=== PATIENT | male | born 1935 | race Caucasian/White ===

== ENCOUNTER 2021-05-31 06:30 | Inpatient (IN) ==
[2021-05-31] MEDS ORDERED: 0.9 % SODIUM CHLORIDE 500 ML IV ONE (06:43)
[2021-05-31] MEDS ORDERED: DIPH,PERTUSS(ACELL),TET VAC/PF 0.5 ML SYRINGE IM ONE (06:43)
[2021-05-31] MEDS ORDERED: morphine 4 MG/ML VIAL IV ONE ×2 (06:43→07:37)
--- NOTE | 2021-05-31 06:47 | Emergency Department Note ---
HPI General Chief complaint: Trauma Stated complaint: Hip pain Time Seen by Provider: 05/31/21 06:43 Source: EMS Mode of arrival: EMS Limitations: no limitations History of Present Illness HPI Narrative: Narrative: 86-year-old male history of hypertension hyperlipidemia, type 2 diabetes, CKD, prostate cancer presents to the ED for fall, head injury. He says he got up around 1 AM in fact to go to the bathroom but believes he simply passed out while standing in the bathroom. Does not really recall but denies any presyncopal symptoms of any kind no chest pain or shortness of breath no palpitations no focal neurologic complaints. Says he did strike his forehead when he fell. Takes baby aspirin. No anticoagulation. Patient was able to get back up into bed but thinks he may have broken his hip so called EMS later this morning and brought him here. Complains of severe right hip pain but denies any other traumatic injury other than hitting his forehead. Has no neck pain thoracic or abdominal pain no pain or weakness in his bilateral upper extremities or left lower extremity. No other complaints, patient is very hard of hearing. Says he was not on the ground for very long Related Data Home Medications Medication Instructions Recorded Confirmed cholecalciferol (vitamin D3) 50 2,000 unit PO QDAY cap 09/12/14 05/26/21 mcg (2,000 unit) capsule insulin lispro 100 unit/mL 6 unit SUB-Q .QAC ml 10/19/19 05/26/21 subcutaneous solution (Humalog U-100 Insulin) aspirin 81 mg chewable tablet 81 mg PO QDAY tab 01/15/21 05/26/21 Previous Rx's Medication Instructions Recorded Diabetic Shoes #1 each 05/31/16 triamcinolone acetonide 0.1 % 1 applic TOPICAL BID #80 g 11/23/16 topical ointment blood-glucose meter (Contour Next #1 each 03/29/17 Meter) blood sugar diagnostic (Contour #300 each 03/27/19 Next Test Strips) amlodipine 5 mg tablet (Norvasc) 5 mg PO QDAY #90 tab 12/16/20 tamsulosin 0.4 mg capsule (Flomax) 0.4 mg PO QDAY #90 cap 12/16/20 hydrochlorothiazide 25 mg tablet 25 mg PO QDAY #90 tab 01/01/21 losartan 100 mg tablet (Cozaar) 100 mg PO QDAY #90 tab 01/08/21 omeprazole 20 mg capsule,delayed 20 mg PO QDAY #90 cap 02/24/21 release levothyroxine 125 mcg tablet 125 mcg PO QDAY #90 tab 05/22/21 (Synthroid) simvastatin 10 mg tablet (Zocor) 10 mg PO QDAY #90 tab 05/22/21 Allergies Allergy/AdvReac Type Severity Reaction Status Date / Time Sulfa (Sulfonamide Allergy Unknown Hives Verified 05/31/21 06:38 Antibiotics) Bee stings Allergy Unknown Anaphylaxis Uncoded 05/26/21 09:01 Review of Systems ROS ROS Narrative: Full review of systems unable to obtain as patient is extremely hard of hearing although he is not altered [facility] Narrative Patient History Narrative: Narrative: Medical/Surgical/Family History All Active Problems (Updated 05/31/21 @ 06:51 by Josias Tubbs DO) Syncope (Acute) Acute hip pain (Acute) Head injury (Acute) Right otitis externa (Acute) Right acute otitis media (Acute) Bilateral knee pain (Acute) Right knee DJD (Acute) Dysphagia (Acute) Prostate cancer (Acute) Annual physical exam (Acute) Medicare annual wellness visit, initial (Acute) IBS (irritable bowel syndrome) (Chronic) Petechial rash (Acute) History of inguinal hernia repair (Acute) Vitamin D deficiency (Acute) Ptosis of eyelid (Acute) Pseudophakia (Acute) Malignant neoplasm prostate (Acute) Open-angle glaucoma (Acute) 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 of 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 (Acute) Hypothyroidism (acquired) (Acute) Hypertension, essential (Acute) Hyperlipidemia (Acute) Hypercholesterolemia (Acute) Glaucoma (Acute) Epiphora (Acute) 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) Chronic kidney disease, stage III (moderate) (Acute) Medical History Annual physical exam Bilateral knee pain Chronic kidney disease, stage III (moderate) Drusen of optic disc Dysphagia Epiphora Glaucoma Hypercholesterolemia Hyperlipidemia Hypertension, essential 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 Head: Normocephalic, slight contusion to forehead and slight abrasion to nasal bridge Eyes: No Icterus, PERRLA EOMI, slight contusion around left eye ENT: Moist mucus membranes, midface stable Neck: Supple, no midline tenderness Cardiac: Normal heart sounds, palpable radial pulses, no peripheral edema Pulmonary: Normal respiratory effort. Breath sounds clear, no wheeze, rhonchi, rales, Gastrointestinal: Abdomen soft, non-distended, non-tender, pelvis stable Musculoskeletal: No gross deformities, well perfused. Right lower extremity shortened externally rotated but distally neurovascularly intact, does have hip pain with logroll. Bilateral upper extremities unremarkable atraumatic nontender full range of motion, left lower extremity unremarkable full range of motion Skin: warm, dry Neuro: Alert and oriented. But extremely hard of hearing General Limitations: no limitations Course Vital Signs Vital signs: Vital Signs Temperature 37.6 C H 05/31/21 06:31 Pulse Rate 84 05/31/21 06:31 Respiratory Rate 16 05/31/21 06:31 Blood Pressure 182/61 05/31/21 06:31 Pulse Oximetry (%) 93 05/31/21 06:31 Temperature 37.6 C H 05/31/21 06:31 Pulse Rate 84 05/31/21 06:31 Respiratory Rate 16 05/31/21 06:31 Blood Pressure 182/61 05/31/21 06:31 Pulse Oximetry (%) 93 05/31/21 06:31 MDM MDM Narrative Medical decision making narrative: Narrative: 86-year-old male patient presents status post fall most suspicious for right hip fracture. Story is a bit unclear, patient thinks he may have actually syncopized although no preceding symptoms. Work-up is initiated Diagnostic tests are all pending will be signed out to Dr. 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: No Clinical Impression: Syncope, Acute hip pain, Head injury Patient Disposition: Still a Patient Condition: Fair Follow up with: Benjamin Srinivasan MD [Primary Care Provider] - Prescriptions: No Action (DME) blood-glucose meter [Contour Next Meter] misc See Dose Instructions .ROUTE .MEDSUPPLY Qty: 1 0RF Dose Instruction: As directed Rx Instructions: As directed (DME) Contour Next Test Strips Strip See Dose Instructions .ROUTE .MEDSUPPLY Qty: 300 3RF Dose Instruction: As directed Rx Instructions: As directed to test three times daily tamsulosin [Flomax] 0.4 mg capsule 0.4 mg PO QDAY Qty: 90 1RF amlodipine [Norvasc] 5 mg tablet 5 mg PO QDAY Qty: 90 1RF Rx Instructions: hydrochlorothiazide 25 mg tablet 25 mg PO QDAY Qty: 90 1RF losartan [Cozaar] 100 mg tablet 100 mg PO QDAY Qty: 90 1RF Rx Instructions: start with 1/2 tab daily x 5 days then increase to 1 tab daily thereafter omeprazole 20 mg capsule,delayed release(DR/EC) 20 mg PO QDAY Qty: 90 1RF simvastatin [Zocor] 10 mg tablet 10 mg PO QDAY Qty: 90 1RF levothyroxine [Synthroid] 125 mcg tablet 125 mcg PO QDAY Qty: 90 1RF cholecalciferol (vitamin D3) 2,000 unit capsule 2,000 unit PO QDAY 0RF aspirin 81 mg tablet,chewable 81 mg PO QDAY 0RF (DME) Diabetic Shoes Qty: 1 0RF Rx Instructions: Pt due for new T2DM shoes as he has not had a new pair in 2 years. triamcinolone acetonide 0.1 % ointment 1 applic TOPICAL BID Qty: 80 0RF insulin lispro [Humalog KwikPen Insulin] 100 unit/mL insulin pen 0RF insulin lispro [Humalog U-100 Insulin] 100 unit/mL solution 6 unit SUB-Q .QAC 0RF
[2021-05-31] MEDS ORDERED: ONDANSETRON 4 MG/2 ML VIAL IV ONE (07:38)
[2021-05-31 07:41] LABS: Basophils # (Auto) 0.02 K/mcL (0.00-0.30); Basophils % (Auto) 0.3 % (0.0-2.0); Eosinophils # (Auto) 0 K/mcL (0.00-0.70); Eosinophils % (Auto) 0 % (0.0-7.0); Hematocrit 33.7 % (40.1-51.0); Hemoglobin 12.1 g/dL (13.7-17.5); Lymphocytes # (Auto) 0.35 K/mcL (1.50-4.80); Lymphocytes % (Auto) 5.5 % (15.5-49.0); Mean Cell Volume 101.8 fL (80.0-100.0); Mean Corpuscular HGB Conc 35.9 g/dL (31.0-36.0); Mean Platelet Volume 10.2 fL (7.4-10.4); Monocytes # (Auto) 0.62 K/mcL (0.10-0.90); Monocytes % (Auto) 9.8 % (1.0-12.0); Neutrophils % (Auto) 84.4 % (38.0-78.0); Platelet Count 191 K/mcL (140-440); RBC 3.31 M/mcL (4.63-6.08); Red Cell Distribution Width 13.2 % (11.5-14.5); WBC 6.3 K/mcL (4.5-11.0)
--- NOTE | 2021-05-31 08:00 | Emergency Department Note ---
ED Note Addendum Note Addendum: Right hip x-ray reveals fracture right femoral neck. CT scan of the head shows age-appropriate changes but no acute disease. C-spine shows degenerative changes but no acute change. Chest x-ray read by radiologist as no acute disease. White count normal at 6.3. hemoglobin low at 12.1 with elevated MCV compatible with macrocytic anemia. platelet count 191. at 7:48 developed temp of 102.5. Yesterday was his last day of antibiotics for a right otitis media/right sided facial infection. EKG; reviewed and interpreted by Dr. Mireles. Normal sinus rhythm. Rate of 75 which is normal. Left axis deviation. Right bundle branch block. No acute ST elevation or ST depression. No hyperacute T waves. No ischemic changes. Impression abnormal EKG. Potassium level was 2.9. Supplemental potassium was ordered. Sodium was low at 128 and the patient was receiving normal saline IV. Spoke to Dr. Espinoza the orthopedist at 8:20 AM. He requested that the patient be seen by the hospitalist and when cleared for surgery by hospitalist he be notified. Requested Hospitalist at 0830. IV Tylenol 650 mg was given. Concern was that the patient was n.p.o. for surgery so was administered IV. Urinalysis was negative for leukocytes. 0935: Discussed with Dr. Rucker the hospitalist. He excepted the patient and we will have the patient sent to the [facility] floor where he will see the patient for further evaluation.
--- NOTE | 2021-05-31 08:01 | XRay Report ---
HISTORY: Fell with right hip injury FINDINGS: There is an acute transverse fracture through the right femoral neck. There is varus angulation. The hip joint is normal in width and alignment, without evidence of underlying arthritis. The bones are normally mineralized. There are numerous radiation implant seeds in the prostate. No lytic or blastic metastasis are present. IMPRESSION: Fractured right femoral neck Dr. Quigley was called with the report Interpreted and Authenticated by: Adolph Andrews 05/31/21
--- NOTE | 2021-05-31 08:01 | XRay Report ---
HISTORY: Syncope, fell, injuries FINDINGS: The lungs are clear and well expanded. There is no pulmonary contusion, pneumothorax or pleural effusion. The heart size and mediastinum are normal. There is a cylindrical shaped radiopaque foreign body overlying the left chest wall. No rib fracture is seen. IMPRESSION: Normal chest Interpreted and Authenticated by: Adolph Andrews 05/31/21
--- NOTE | 2021-05-31 08:02 | Cat Scan Report ---
History: Syncope, fell, neck injury TECHNIQUE: The neck was imaged without contrast in an axial plane at 2.5 mm intervals. Sagittal and coronal reformats were created. The radiation exposure was limited using dose reduction technology. FINDINGS: The cervico-occipital junction is normal. There is mild osteoarthritis at the articulation of the odontoid and anterior ring of C1. There is no fracture or evidence of acute neck injury. The C2-3 disc is moderately narrowed. C3-4 disc is partially ankylosed. There is no spur formation or stenosis. At C4-5 there is mild disc space narrowing and 3 mm grade 1 spondylolisthesis due to moderate arthritis in the right facet. There is mild to moderate stenosis right-sided neural foramen. C5-6 disc is severely narrowed and degenerated. There is a medium-size anterior and small posterior osteophyte. There is also mild arthritis in the facets and spurring of the uncinate processes causing moderate stenosis of both neural foramina. The C6-7 disc is moderately narrowed and degenerated. There are moderate size spurs arising from the uncinate processes bilaterally causing severe stenosis of both neural foramina. C7-T1 disc is moderate to severely narrowed and degenerated. There are small spurs arising from the uncinate processes and facets bilaterally causing mild stenosis of the foramina. No paraspinal mass or hematoma are present. There are ossifications in the ligamentum nuchae posterior to the spinous processes of C5 and C6. 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 The greatest neural foraminal stenosis is bilaterally at C6-7 Dr. Quigley was called with the report Interpreted and Authenticated by: Adolph Andrews 05/31/21
--- NOTE | 2021-05-31 08:02 | Cat Scan Report ---
History: Syncope, fell, head injury TECHNIQUE: The brain was imaged without contrast in axial plane at 2.5 mm intervals. Sagittal and coronal reformats were created. The radiation exposure was limited using dose reduction technology. FINDINGS: The patient was unable to remain motionless during the exam. There is some motion artifact. Mild generalized atrophy is present. There are ill-defined zones of decreased attenuation in the white matter in the frontal and parietal lobes. These findings are consistent with age-related ischemia or degeneration. There is no intracranial hemorrhage. No infarct is detected. There is no mass effect. The ventricles are prominent but proportionate to the atrophy. No abnormal extra-axial fluid collection is present. Bone windows show no skull fracture. There is moderate left maxillary sinusitis with an air-fluid level. There is also opacification a few ethmoid air cells bilaterally. No abnormality is seen within the orbits. IMPRESSION: Age-related degenerative changes No evidence of acute head injury Sinusitis Dr. Quigley was called with the report Interpreted and Authenticated by: Adolph Andrews 05/31/21
[2021-05-31 08:03] LABS: Creatine Kinase 497 U/L (24-195)
[2021-05-31 08:17] LABS: Blood Urea Nitrogen 44 mg/dL (8-23); Calcium 9.3 mg/dL (8.6-10.4); Carbon Dioxide 22 mmol/L (22-30); Chloride 89 mmol/L (96-108); Glomerular Filtration Rate 38; Glucose 211 mg/dL (70-105)
[2021-05-31] MEDS ORDERED: POTASSIUM CHLORIDE 40 MEQ in DEXTROSE 5% IN WATER 500 ML IV ONE (08:19)
[2021-05-31 09:15] LABS: Appearance,Urine HAZY (Clear); Bilirubin,Urine Negative (Negative); Color,Urine YELLOW; Culture Indicated,Urine No; Glucose,Urine (UA) Negative (Negative); Ketones,Urine Negative (Negative); Leukocyte Esterase,Urine Negative /uL (Negative); Mucus,Urine FEW /hpf; Nitrate,Urine Negative (Negative); Protein,Urine 30 mg/dL (Negative); Specific Gravity,Urine 1.011 (1.000-1.035); Urine Blood >=1.0 mg/dL (Negative); Urine RBC 1 /hpf (0-3); Urine Squamous Epithelial Cell 1 /hpf (0-4); Urine WBC 1 /hpf (0-4); Urobilinogen,Urine Negative
[2021-05-31] MEDS ORDERED: ACETAMINOPHEN 650 MG/65 ML BAG IV ONE (09:19)
[2021-05-31] MEDS ORDERED: ONDANSETRON 4 MG/2 ML VIAL IV PRN ×2 (10:10→10:52)
[2021-05-31] MEDS ORDERED: 0.9 % SODIUM CHLORIDE 1,000 ML IV SCH (10:15)
--- NOTE | 2021-05-31 10:28 | Internal Med History&Physical ---
HPI History of Present Illness Patient information: Note initiated : 05/31/21 at 10:22 am Service Date, if different from initiated Date: [] Patient: Mandi Bahena a 86 y/o M admitted on for Hip pain. Chief Complaint: [] History of present illness: Mr. Bahena is a 86 year old M Presents to the ED with right hip pain. He got up around 1 in the morning to go to the bathroom and while ambulating bathroom he fell hit his face believe he passed out. Per she says he told her he got dizzy she doesn't know if he passed out or not. Denies any chest pain or shortness of breath. Is on baby aspirin, but no anticoagulation. Patient got back up in the bed and then called EMS in the morning realizing severe pain. CT head in the ED was unremarkable. He did finish antibiotics yesterday for right otitis media. In the ED is found to be hyponatremic 128 with low potassium 2.9.. Of BUN creatinine above baseline. Patient was given IV fluid in the ED. He also had a fever in the ED but chest x-ray and urinalysis is unremarkable. No leukocytosis, will check band count. Mildly elevated CPK likely from tissue damage from the fall. Troponin negative. Review of Systems: Positive as above. Denies headache/fever/chills/nausea/vomiting/chest or abdominal pain/cough/dyspnea/diarrhea. Remaining 10 point review of system reviewed negative PFSH PFSH All Active Problems (Updated 05/31/21 @ 09:19 by Reji Mireles MD) Syncope (Acute) Head injury (Acute) Closed displaced fracture of right femoral neck (Acute) Anemia, macrocytic (Acute) Acute hypokalemia (Acute) Acute hyponatremia (Acute) Febrile (Acute) Diabetes (Acute) Right otitis externa (Acute) Right acute otitis media (Acute) Bilateral knee pain (Acute) Right knee DJD (Acute) Dysphagia (Acute) Prostate cancer (Acute) Annual physical exam (Acute) Medicare annual wellness visit, initial (Acute) IBS (irritable bowel syndrome) (Chronic) Petechial rash (Acute) History of inguinal hernia repair (Acute) Vitamin D deficiency (Acute) Ptosis of eyelid (Acute) Pseudophakia (Acute) Malignant neoplasm prostate (Acute) Open-angle glaucoma (Acute) 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 (Acute) Hypothyroidism (acquired) (Acute) Hypertension, essential (Acute) Hyperlipidemia (Acute) Hypercholesterolemia (Acute) Glaucoma (Acute) Epiphora (Acute) 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) Chronic kidney disease, stage III (moderate) (Acute) Medical History Annual physical exam Bilateral knee pain Chronic kidney disease, stage III (moderate) Drusen of optic disc Dysphagia Epiphora Glaucoma Hypercholesterolemia Hyperlipidemia Hypertension, essential 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 Malignant neoplasm prostate Medicare annual wellness visit, initial Open-angle glaucoma Petechial rash Prostate cancer Pseudophakia Ptosis of eyelid 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 Vitamin D deficiency Surgical History History of colonoscopy (05/08/03) History of inguinal hernia repair Family History Mother Diabetes mellitus NOS Essential hypertension Social History marital status: occupational status: retired physical activity: aerobics frequency: daily alcohol intake frequency: does not drink substance use type: does not use MEDS/ALLERGIES Home Medications and Allergies Home Medications Medication Instructions Recorded Confirmed Type cholecalciferol (vitamin D3) 50 2,000 unit PO QDAY cap 09/12/14 05/31/21 History mcg (2,000 unit) capsule Diabetic Shoes #1 each 05/31/16 05/26/21 Rx triamcinolone acetonide 0.1 % 1 applic TOPICAL BID #80 g 11/23/16 05/26/21 Rx topical ointment blood-glucose meter (Contour Next #1 each 03/29/17 05/26/21 Rx Meter) blood sugar diagnostic (Contour #300 each 03/27/19 05/26/21 Rx Next Test Strips) amlodipine 5 mg tablet (Norvasc) 5 mg PO QDAY #90 tab 12/16/20 05/31/21 Rx tamsulosin 0.4 mg capsule (Flomax) 0.4 mg PO QDAY #90 cap 12/16/20 05/26/21 Rx losartan 100 mg tablet (Cozaar) 100 mg PO QDAY #90 tab 10/14/21 03/01/22 Rx aspirin 81 mg chewable tablet 81 mg PO QDAY tab 01/15/21 05/31/21 History omeprazole 20 mg capsule,delayed 20 mg PO QDAY #90 cap 02/24/21 05/26/21 Rx release levothyroxine 125 mcg tablet 125 mcg PO QDAY #90 tab 05/22/21 05/31/21 Rx (Synthroid) simvastatin 10 mg tablet (Zocor) 10 mg PO QDAY #90 tab 05/22/21 05/26/21 Rx Allergies Allergy/AdvReac Type Severity Reaction Status Date / Time Sulfa (Sulfonamide Allergy Unknown Hives Verified 05/31/21 06:38 Antibiotics) Bee stings Allergy Unknown Anaphylaxis Uncoded 05/26/21 09:01 EXAM Constitutional Vitals: Temp Pulse Resp BP Pulse Ox 100.7 F H 76 16 116/55 93 05/31/21 09:15 05/31/21 08:31 05/31/21 06:31 05/31/21 10:16 05/31/21 08:31 Exam: General: Alert, Awake, No acute Distress Eyes/N/T: EOMI, PERRL, dry MM Head/Neck: neck supple, normocephalic atraumatic CV: RRR, 2/6 SM, normal s1/s2 Pulm: Clear b/l, no wheezing/rhonchi/rales Abd: soft, nontender, +BS x4 Ext: no clubbing/cyanosis/edema Neuro: Alert, no focal deficits, moves all extremities, CN 2-12 grossly intact, sensations intact bilateral upper and lower skin: warm/dry DATA Data Completed and Pending Labs: Labs from last 24 hours 05/31/21 05/31/21 05/31/21 08:30 08:28 08:27 WBC RBC Hgb Hct MCV MCH MCHC RDW Plt Count MPV Neut % (Auto) Lymph % (Auto) [place] % (Auto) Eos % (Auto) Baso % (Auto) Lymph # (Auto) [place] # (Auto) Eos # (Auto) Baso # (Auto) Absolute Neutrophils VBG Lactic Acid 1.1 Sodium Potassium Chloride Carbon Dioxide Anion Gap BUN Creatinine GFR Calculation Glucose Calcium Magnesium Total Creatine Kinase Troponin T < 0.01 Urine Color Yellow Urine Appearance Hazy A Urine pH 5.0 Ur Specific [place] 1.011 Urine Protein 30 A Urine Glucose (UA) Negative Urine Ketones Negative Urine Occult Blood >=1.0 A Urine Nitrate Negative Urine Bilirubin Negative Urine Urobilinogen Negative Ur Leukocyte Esterase Negative Urine RBC 1 Urine WBC 1 Ur Squamous Epith Cells 1 Urine Bacteria None Urine Mucus Few A Ur Culture Indicated? No 05/31/21 05/31/21 05/31/21 07:18 07:18 07:18 WBC 6.3 RBC 3.31 L Hgb 12.1 L Hct 33.7 L MCV 101.8 H MCH 36.6 H MCHC 35.9 RDW 13.2 Plt Count 191 MPV 10.2 Neut % (Auto) 84.4 H Lymph % (Auto) 5.5 L [place] % (Auto) 9.8 Eos % (Auto) 0 Baso % (Auto) 0.3 Lymph # (Auto) 0.35 L [place] # (Auto) 0.62 Eos # (Auto) 0 Baso # (Auto) 0.02 Absolute Neutrophils 5.35 VBG Lactic Acid Sodium 128 L Potassium 2.9 L* Chloride 89 L Carbon Dioxide 22 Anion Gap 17.0 H BUN 44 H Creatinine 1.6 H GFR Calculation 38 Glucose 211 H Calcium 9.3 Magnesium 1.8 Total Creatine Kinase 497 H Troponin T TNP Urine Color Urine Appearance Urine pH Ur Specific [place] Urine Protein Urine Glucose (UA) Urine Ketones Urine Occult Blood Urine Nitrate Urine Bilirubin Urine Urobilinogen Ur Leukocyte Esterase Urine RBC Urine WBC Ur Squamous Epith Cells Urine Bacteria Urine Mucus Ur Culture Indicated? A/P Narrative A/P Narrative: A: *Right hip fracture: *Hyponatremia/hypokalemia: *Volume depletion: *likely orthostatic hypotension/syncope prehospital: *GIOVANNI on CKD IIIb: *Fever: ?reactive from pain/fracture vs other. UA/CXR unremarkable. -Just finished antibiotic course for right otitis media *Macrocytic anemia, chronic: *DM: *HTN/HLD: *Hypothyroidism: *GERD: *Generalized weakness/deconditioning P: -IVF & potassium supp, f/u sodium/potassium -f/u renal fxn -Dr. Espinoza for orthopedic surgery -check b12/folate -cont homee norvasc, d/c home hctz for hyponatremia -Aspirin for surgery -Basal and SSI -PT/OT -CM for placement -ppx: SCD and post-op per ortho / home ppi Time Spent With Patient Time: Total time spent is greater than 50% in coordination of care (as documented) at patient's floor/unit and/or counseling patient:
[2021-05-31] MEDS ORDERED: DEXTROSE 50% 50 ML VIAL IV PRN (10:52)
[2021-05-31] MEDS ORDERED: DEXTROSE 31 GM ORAL.SUSP PO PRN (10:52)
[2021-05-31] MEDS ORDERED: POTASSIUM CHLORIDE 20 MEQ TABLET PO ONE (10:52)
[2021-05-31] MEDS ORDERED: POTASSIUM CHLORIDE 40 MEQ in DEXTROSE 5% IN WATER 500 ML IV PRN (10:52)
[2021-05-31] MEDS ORDERED: HYDROcodone/APAP 5/325MG TABLET PO PRN (10:52)
[2021-05-31] MEDS ORDERED: POTASSIUM CHLORIDE 20 MEQ TABLET PO PRN ×2 (10:52)
[2021-05-31] MEDS ORDERED: POLYETHYLENE GLYCOL 3350 17 GM PACKET PO PRN (10:52)
[2021-05-31] MEDS ORDERED: LABETALOL 5 MG/ML ML IV PRN (10:52)
[2021-05-31] MEDS ORDERED: ACETAMINOPHEN 325 MG TABLET PO PRN (10:52)
[2021-05-31] MEDS ORDERED: MAGNESIUM SULFATE 2 GM/50 ML BAG IV PRN (10:52)
[2021-05-31] MEDS ORDERED: IPRATROPIUM/ALBUTEROL 3 ML AMPUL.NEB NEB PRN (10:52)
[2021-05-31] MEDS ORDERED: SENNOSIDES 1 TABLET PO PRN (10:52)
[2021-05-31] MEDS: INSULIN LISPRO 1 UNIT/0.01 ML UNIT SQ SCH ×3 (11:58→21:18)
[2021-05-31 12:33] LABS: Band Neutrophils % 2 % (0-10); Lymphocytes % 7 % (15-49); Macrocytosis 1+ (None Seen); Monocytes % (Manual) 8 % (1-12); Platelet Estimate NORMAL (Normal); RBC Morphology ABNORMAL (Normal); Segmented Neutrophils % 83 % (38-78)
[2021-05-31] MEDS: 0.9 % SODIUM CHLORIDE 1,000 ML IV SCH (13:23)
[2021-05-31] MEDS: 0.9 % SODIUM CHLORIDE 10 ML SYRINGE IV SCH ×2 (14:31→21:15)
[2021-05-31] MEDS: morphine 2 MG/ML VIAL IV PRN ×2 (15:48→18:25)
--- NOTE | 2021-05-31 16:58 | History and Physical Report ---
DATE OF ADMISSION: 05/31/2021 HISTORY OF PRESENT ILLNESS: The patient is an 86-year-old male, who was getting up in the middle of the night to use bathroom and fell. He said he fell and hit his face on a granite counter. He states that he was able to get back up and fell several times thereafter. He did go back to bed and waited to tell them morning time to call EMS realizing he had significant pain in the right hip. He was bought to the ED now for evaluation. Hip x-rays did reveal a femoral neck fracture of the right hip. CT scan was unremarkable. The patient recently finished antibiotics for right otitis media and was found to be hyponatremic and hypokalemic in the ED. Hospitalist was then consulted for to be admitted into the hospital for medical review, and orthopedics were consulted for hip fracture. 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 PAST SURGICAL HISTORY: Includes colonoscopy in 2003 as well as repair of an inguinal hernia. FAMILY HISTORY: Positive for mother who had diabetes and hypertension. SOCIAL HISTORY: The patient is . He is retired. He does day-to-day activity including walking. He denies alcohol use or tobacco use. MEDICATIONS: Include vitamin D3, triamcinolone topical ointment, blood glucose meter, amlodipine 5 mg tablet, tamsulosin 0.4 mg capsule, losartan 100 mg tablet, aspirin 81 mg, omeprazole 20 mg, levothyroxine 125 mcg, and simvastatin. ALLERGIES: HE DOES REPORT AN ALLERGY TO SULFA DRUGS AND BEE STINGS. PHYSICAL EXAMINATION: GENERAL: On exam, the patient was alert and oriented times 3. He had appropriate mood and affect. HEART: Regular. LUNGS: Clear to auscultation. EXTREMITIES: His right lower extremity was shortened and externally rotated. He did have palpable tibial pulse bilaterally. He was able to wiggle his toes on the right lower extremity. He had good capillary refill. Sensation was grossly intact. The left lower extremity, the patient was able to plantar flex and dorsiflex the ankle. He was also able to gently flex and extend the knee, however, this was painful for him given his underlying osteoarthritis of the knee. HEENT: He denies any other injuries other than small cut on his nose from his fall. PERTINENT LABORATORY WORK: Noted at the time of admission, red blood cells are low at 3.31, hemoglobin is 12.1, hematocrit was 33.7. Sodium is 128, potassium 2.9. X-ray of the right hip do show a displaced femoral neck fracture. IMPRESSION: Right femoral neck fracture in an 86-year-old male. PLAN: The patient has elected to proceed with a right hip hemiarthroplasty to be performed by Dr. Espinoza after medical clearance by hospitalist. This will likely go on 06/01/2021 in the afternoon. I did have a long discussion with the patient regarding the procedure and the postoperative protocol. I advised the patient of risk of surgery including bleeding; infection; injury to nerves, blood vessels, and other structures in that area; and anesthetic risk which may include heart attack, stroke, or even . The patient was agreeable to this and is willing to proceed. JOANNA:candelaria Job ID: [id number] Doc ID: [id number] Gonzalo Nova PA-C
--- NOTE | 2021-05-31 17:24 | EKG ---
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 It is regular and rate is controlled. Probable sinus or ectopic atrial mechanism Right bundle branch block Electronically Signed On 05-31-2021 17:24:10 PST by Antonino Martini /store/[email or web address]/[id number]
[2021-05-31] MEDS: DOCUSATE SODIUM 100 MG CAPSULE PO SCH (21:15)
[2021-06-01] MEDS: 0.9 % SODIUM CHLORIDE 1,000 ML IV SCH ×2 (02:17→21:02)
[2021-06-01] MEDS: 0.9 % SODIUM CHLORIDE 10 ML SYRINGE IV SCH ×3 (05:04→21:03)
[2021-06-01 07:09] LABS: ALT/SGPT 10 U/L (<40); AST/SGOT 40 U/L (<40); Albumin 3.4 gm/dL (3.2-5.2); Albumin/Globulin Ratio 1.2 (1.0-2.3); Alkaline Phosphatase 49 U/L (39-117); Bilirubin,Direct < 0.2 mg/dL (0-0.3); Bilirubin,Total 0.6 mg/dL (0.1-1.0); Blood Urea Nitrogen 29 mg/dL (8-23); Calcium 8.4 mg/dL (8.6-10.4); Carbon Dioxide 23 mmol/L (22-30); Chloride 98 mmol/L (96-108); Globulin 2.8 gm/dL (2.2-3.7); Glomerular Filtration Rate 49; Glucose 139 mg/dL (70-105); Lactate Dehydrogenase 187 U/L (135-225); Phosphorous 1.7 mg/dL (2.5-4.5); Triglycerides 72 mg/dL (<150); Uric Acid 6.3 mg/dL (2.5-8.0)
[2021-06-01] MEDS ORDERED: DEXTROSE 50% 50 ML SYRINGE IV PRN (07:30)
[2021-06-01] MEDS: INSULIN LISPRO 1 UNIT/0.01 ML UNIT SQ SCH ×4 (08:12→22:14)
[2021-06-01] MEDS: VITAMIN D3 25 MCG TABLET PO SCH (08:12)
[2021-06-01] MEDS: DOCUSATE SODIUM 100 MG CAPSULE PO SCH ×2 (08:12→21:18)
[2021-06-01] MEDS: LEVOTHYROXINE 125 MCG TABLET PO SCH (08:12)
[2021-06-01] MEDS: morphine 2 MG/ML VIAL IV PRN ×3 (08:20→13:21)
[2021-06-01] MEDS ORDERED: BENZOCAINE 1 SPRAY BOTTLE TOPICAL ONE (09:54)
[2021-06-01] MEDS ORDERED: oxyCODONE HCL 5 MG TABLET PO PRN (13:46)
[2021-06-01] MEDS ORDERED: LABETALOL 5 MG/ML ML IV PRN ×2 (13:48→18:24)
[2021-06-01] MEDS: ACETAMINOPHEN 1,000 MG/100 ML BAG IV SCH ×2 (14:00→21:02)
[2021-06-01] MEDS ORDERED: KETAMINE 50 MG/ML Syringe (ANEST) IV ONE (17:00)
[2021-06-01] MEDS ORDERED: ONDANSETRON 4 MG/2 ML VIAL ONE (17:00)
[2021-06-01] MEDS ORDERED: GLYCOPYRROLATE 0.2 MG/ML VIAL IV ONE (17:00)
[2021-06-01] MEDS ORDERED: TRANEXAMIC ACID 1,000 MG/10 ML VIAL ONE ×2 (17:00→19:35)
[2021-06-01] MEDS ORDERED: LIDOCAINE HCL/PF 100 MG/5 ML SYRINGE IV ONE (17:00)
[2021-06-01] MEDS ORDERED: MAGNESIUM SULFATE 2 GM/50 ML BAG IV ONE (17:00)
[2021-06-01] MEDS ORDERED: PHENYLephrine 1 MG/10 ML SYRINGE (ANEST) ONE (17:00)
[2021-06-01] MEDS ORDERED: ROPIVACAINE HCL/PF 20 ML VIAL IJ ONE (17:00)
[2021-06-01] MEDS ORDERED: ceFAZolin 2 GM in DEXTROSE 5% IN WATER 50 ML IV SCH ×2 (17:00→18:15)
[2021-06-01] MEDS ORDERED: DEXAMETHASONE 10 MG/ML VIAL ONE (17:00)
[2021-06-01] MEDS ORDERED: fentaNYL 100 MCG/2 ML VIAL IV ONE (17:00)
[2021-06-01] MEDS ORDERED: PROPOFOL 200 MG/20 ML VIAL IV ONE (17:00)
[2021-06-01] MEDS ORDERED: SUGAMMADEX SODIUM 200 MG/2 ML VIAL IV ONE (17:00)
[2021-06-01] MEDS ORDERED: BENZOCAINE/MENTHOL 1 LOZENGE PO PRN ×2 (18:05→18:24)
[2021-06-01] MEDS ORDERED: MAGNESIUM HYDROXIDE 30 ML ORAL.SUSP PO PRN (18:05)
--- NOTE | 2021-06-01 18:05 | Brief Operative Note ---
Brief Operative Note Date of procedure: 06/01/21 Pre-op diagnosis: Right femoral neck fracture Post-op diagnosis: same Procedure: Open treatment right femoral neck fracture with prosthetic hemiarthroplasty Grafts/Implants: Yes (Depuy Actis 4 std stem, +0 neck, 52 unipolar head) Anesthesia: GETA Findings: femoral neck fracture Complications: none Surgeon: Tae Espinoza Television Station Manager: Gonzalo Nova Estimated blood loss (cc): 100 Specimens Removed/Pathology: none sent Condition: stable Disposition: PACU
[2021-06-01] MEDS ORDERED: morphine 4 MG/ML VIAL IV PRN (18:11)
[2021-06-01] MEDS ORDERED: LACTATED RINGERS 250 ML IV PRN (18:24)
[2021-06-01] MEDS ORDERED: IPRATROPIUM/ALBUTEROL 3 ML AMPUL.NEB NEB PRN (18:24)
[2021-06-01] MEDS ORDERED: NALOXONE HCL 0.4 MG/ML VIAL IV PRN (18:24)
[2021-06-01] MEDS ORDERED: ACETAMINOPHEN 1,000 MG/100 ML BAG IV ONE (18:24)
[2021-06-01] MEDS ORDERED: METOPROLOL TARTRATE 5 MG/5 ML VIAL IV PRN (18:24)
[2021-06-01] MEDS ORDERED: METHOCARBAMOL 1,000 MG/10 ML VIAL IV PRN (18:24)
[2021-06-01] MEDS ORDERED: ONDANSETRON 4 MG/2 ML VIAL IV PRN (18:24)
[2021-06-01] MEDS ORDERED: fentaNYL 100 MCG/2 ML VIAL IV PRN (18:24)
[2021-06-01] MEDS ORDERED: LACTATED RINGERS 1,000 ML IV SCH (18:30)
--- NOTE | 2021-06-01 19:25 | Internal Med Progress Note ---
SUBJECTIVE Subjective Patient information: Note initiated : 06/01/21 at 7:24 pm Service Date, if different from initiated Date: [] Patient: Mandi Bahena 86 y/o M admitted on 05/31/21 for Hip pain. Chief Complaint: [] Interval history: Mr. Bahena is a 86 year old M Presents to the ED with right hip pain. He got up around 1 in the morning to go to the bathroom and while ambulating bathroom he fell hit his face believe he passed out. Per she says he told her he got dizzy she doesn't know if he passed out or not. Denies any chest pain or shortness of breath. Is on baby aspirin, but no anticoagulation. Patient got back up in the bed and then called EMS in the morning realizing severe pain. CT head in the ED was unremarkable. He did finish antibiotics yesterday for right otitis media. In the ED is found to be hyponatremic 128 with low potassium 2.9.. Of BUN creatinine above baseline. Patient was given IV fluid in the ED. He also had a fever in the ED but chest x-ray and urinalysis is unremarkable. No leukocytosis, will check band count. Mildly elevated CPK likely from tissue damage from the fall. Troponin negative. 06/01 Sodium improved to 130, hypokalemia resolved, renal function improved, surgery planned for today. Physical exam Head: Atraumatic, normal inspection. Eyes: normal appearance, no scleral icterus. Neck: full ROM Respiratory: no respiratory distress. Cardiovascular: normal rate and rhythm, S1, S2. GI/Abdominal: soft, nontender, no guarding. Extremities: Right hip tenderness Neurological: CN II-XII intact, intact motor, intact sensation. Psychiatric: normal mood. Skin: warm, normal color Constitutional Vitals: Vital Signs Temp Pulse Resp BP Pulse Ox 97.2 F 68 18 157/104 93 06/01/21 19:11 06/01/21 19:12 06/01/21 19:12 06/01/21 19:12 06/01/21 19:12 Period Temp Pulse Resp BP Sys/Davalos Pulse Ox Last 24 Hr 97.2 F-101.4 F 49-76 10-20 80-157/42-117 88-100 Intake and Output 06/01/21 06/01/21 06/01/21 05:59 13:59 21:59 Intake Total 1050 1850 Output Total 950 1425 Balance 100 425 Intake & Output: Intake & Output 06/01/21 06/01/21 06/01/21 05:59 13:59 21:59 Intake Total 1050 1850 Output Total 950 1425 Balance 100 425 Intake: IV 1000 50 Sodium Chloride 0.9% 1,000 ml @ 1000 84 mls/hr IV .[id number] [facility] Rx#: [id number] Ancef 2 gm In Dextrose 5% in 50 Water 50 ml @ 100 mls/hr IV PREOP [facility] Rx#:[id number] Oral 50 IV - Manual Only 1800 Output: Urine Catheter Amount 950 1425 Other: Urine Appearance Clear Urine Color Straw Urine Odor Normal OBJ DATA Labs CBC & Chem 7: 05/31/21 07:18 06/01/21 05:13 Labs: Abnormal Lab Results 06/01/21 06/01/21 06/01/21 05:13 05:13 05:13 RBC Hgb Hct MCV MCH Neut % (Auto) Lymph % (Auto) Lymph # (Auto) Seg Neutrophils % Lymphocytes % RBC Morphology Macrocytosis Sodium 130 L Potassium Chloride Anion Gap BUN 29 H Creatinine 1.3 H Glucose 139 H Calcium 8.4 L Phosphorus 1.7 L AST 40 H Total Creatine Kinase 787 H Folate > 20.0 H Urine Appearance Urine Protein Urine Occult Blood Urine Mucus 05/31/21 05/31/21 05/31/21 08:30 07:18 07:18 RBC Hgb Hct MCV MCH Neut % (Auto) Lymph % (Auto) Lymph # (Auto) Seg Neutrophils % 83 H Lymphocytes % 7 L RBC Morphology Abnormal A Macrocytosis 1+ A Sodium 128 L Potassium 2.9 L* Chloride 89 L Anion Gap 17.0 H BUN 44 H Creatinine 1.6 H Glucose 211 H Calcium Phosphorus AST Total Creatine Kinase 497 H Folate Urine Appearance Hazy A Urine Protein 30 A Urine Occult Blood >=1.0 A Urine Mucus Few A 05/31/21 07:18 RBC 3.31 L Hgb 12.1 L Hct 33.7 L MCV 101.8 H MCH 36.6 H Neut % (Auto) 84.4 H Lymph % (Auto) 5.5 L Lymph # (Auto) 0.35 L Seg Neutrophils % Lymphocytes % RBC Morphology Macrocytosis Sodium Potassium Chloride Anion Gap BUN Creatinine Glucose Calcium Phosphorus AST Total Creatine Kinase Folate Urine Appearance Urine Protein Urine Occult Blood Urine Mucus Meds: Medications Hydrocodone Bitart/Acetaminophen (Hydrocodone/Apap 5/325mg Tablet) 0 tab PO Q4HP PRN; Protocol PRN Reason: Per Pain Protocol Albuterol/Ipratropium (Ipratropium/Albuterol 3 Ml Ampul.Neb) 3 ml NEB Q4HP PRN PRN Reason: Shortness Of Breath Albuterol/Ipratropium (Ipratropium/Albuterol 3 Ml Ampul.Neb) 3 ml NEB ONCE PRN PRN Reason: Wheezing Stop: 06/01/21 20:24 Dextrose (Dextrose 50% 50 Ml Syringe) 0 ml IV UD PRN PRN Reason: Hypoglycemia Diagnostic Test (Pha) (Accu-Chek 1 Each Strip) 1 each FS ACHS [facility] Last Admin: 06/01/21 12:45 Dose: 1 each Documented by: Docusate Sodium (Docusate Sodium 100 Mg Capsule) 100 mg PO BID [facility] Last Admin: 06/01/21 08:12 Dose: Not Given Documented by: Fentanyl (Fentanyl 100 Mcg/2 Ml Vial) 25 mcg IV Q2M PRN PRN Reason: Pain Stop: 06/01/21 20:24 Glucose (Dextrose 31 Gm Oral.Susp) 15 gm PO PRN PRN PRN Reason: Hypoglycemia Heparin Sodium (Porcine) (Heparin 5,000 Unit/Ml Vial) 5,000 unit SQ Q12 [facility] Potassium Chloride 40 meq/ (Dextrose) 520 mls @ 130 mls/hr IV UD PRN PRN Reason: Potassium < 3 Magnesium Sulfate (Magnesium Sulfate) 2 gm in 50 mls @ 50 mls/hr IV UD PRN PRN Reason: Magnesium </= 1.6 Acetaminophen (Ofirmev) 1,000 mg in 100 mls @ 200 mls/hr IV Q8H [facility]; Protocol Last Admin: 06/01/21 14:00 Dose: 200 mls/hr Documented by: Cefazolin Sodium 2 gm/ (Dextrose) 50 mls @ 100 mls/hr IV PREOP [facility]; Protocol Stop: 06/01/21 21:00 Last Infusion: 06/01/21 17:45 Dose: Infused Documented by: Sodium Chloride (Sodium Chloride 0.9%) 1,000 mls @ 100 mls/hr IV .Q10H [facility] Cefazolin Sodium 2 gm/ (Dextrose) 50 mls @ 100 mls/hr IV Q8H [facility]; Protocol Stop: 06/02/21 02:16 Lactated Ringer's (Lactated Ringers) 1,000 mls @ 0 mls/hr IV PRN PRN PRN Reason: Hypovolemia Stop: 06/01/21 20:24 Lactated Ringer's (Lactated Ringers) 1,000 mls @ 20 mls/hr IV .Q24H [facility] Stop: 06/01/21 20:24 Acetaminophen (Ofirmev) 1,000 mg in 100 mls @ 200 mls/hr IV ONCE ONE Stop: 06/01/21 18:53 Insulin Human Lispro (Insulin Lispro 1 Unit/0.01 Ml Unit) 0 unit SQ [facility]; Protocol Last Admin: 06/01/21 12:45 Dose: Not Given Documented by: Labetalol HCl (Labetalol 5 Mg/Ml Ml) 0 mg IV Q2HP PRN PRN Reason: Hypertension Labetalol HCl (Labetalol 5 Mg/Ml Ml) 5 mg IV Q5MIN PRN PRN Reason: SBP > 160 Stop: 06/01/21 20:24 Levothyroxine Sodium (Levothyroxine 125 Mcg Tablet) 125 mcg PO [facility] Last Admin: 06/01/21 08:12 Dose: Not Given Documented by: Magnesium Hydroxide (Magnesium Hydroxide 30 Ml Oral.Susp) 30 ml PO BIDP PRN PRN Reason: Constipation Methocarbamol (Methocarbamol 1,000 Mg/10 Ml Vial) 750 mg IV ONCE PRN PRN Reason: Muscle Spasm Stop: 06/01/21 20:24 Metoprolol Tartrate (Metoprolol Tartrate 5 Mg/5 Ml Vial) 2.5 mg IV Q5MIN PRN PRN Reason: Tachyarrhythmias Stop: 06/01/21 20:24 Morphine Sulfate (Morphine 2 Mg/Ml Vial) 2 mg IV Q1HP PRN; Protocol PRN Reason: Per Pain Protocol Last Admin: 06/01/21 13:21 Dose: 2 mg Documented by: Morphine Sulfate (Morphine 4 Mg/Ml Vial) 0 mg IV Q1HP PRN; Protocol PRN Reason: Per Pain Protocol Naloxone HCl (Naloxone Hcl 0.4 Mg/Ml Vial) 0.1 mg IV Q2MIN PRN PRN Reason: Opiate Reversal Stop: 06/01/21 20:24 Ondansetron HCl (Ondansetron 4 Mg/2 Ml Vial) 4 mg IV Q4HP PRN PRN Reason: Nausea And Vomiting Ondansetron HCl (Ondansetron 4 Mg/2 Ml Vial) 4 mg IV ONCE PRN PRN Reason: Nausea And Vomiting Stop: 06/01/21 20:24 Oxycodone HCl (Oxycodone Hcl 5 Mg Tablet) 5 mg PO Q6HP PRN; Protocol PRN Reason: Per Pain Protocol Polyethylene Glycol (Polyethylene Glycol 3350 17 Gm Packet) 17 gm PO DAILYP PRN PRN Reason: Constipation Potassium Chloride (Potassium Chloride 20 Meq Tablet) 40 meq PO UD PRN PRN Reason: Potssium is 3-3.5 Potassium Chloride (Potassium Chloride 20 Meq Tablet) 40 meq PO UD PRN PRN Reason: Potassium < 3 Senna (Sennosides 1 Tablet) 2 tab PO DAILYP PRN PRN Reason: Constipation Simvastatin (Simvastatin 10 Mg Tablet) 10 mg PO HS [facility] Sodium Chloride (0.9 % Sodium Chloride 10 Ml Syringe) 10 ml IV Q8 [facility] Last Admin: 06/01/21 14:04 Dose: 10 ml Documented by: Tamsulosin HCl (Tamsulosin 0.4 Mg Capsule) 0.4 mg PO HS [facility] Throat Lozenges (Benzocaine/Menthol 1 Lozenge) 1 lozenge PO PRN PRN PRN Reason: Sore Throat Throat Lozenges (Benzocaine/Menthol 1 Lozenge) 1 lozenge PO PRN PRN PRN Reason: Sore Throat Stop: 06/01/21 20:24 Vitamin D (Vitamin D3 25 Mcg Tablet) 50 mcg PO DAILY [facility] Last Admin: 06/01/21 08:12 Dose: Not Given Documented by: A/P Narrative A/P Narrative: A: *Right hip fracture: *Hyponatremia *Volume depletion: *likely orthostatic hypotension/syncope prehospital: *GIOVANNI on CKD IIIb: *Fever: ?reactive from pain/fracture vs other. UA/CXR unremarkable. -Just finished antibiotic course for right otitis media *Macrocytic anemia, chronic: *DM: *HTN/HLD: *Hypothyroidism: *GERD: *Generalized weakness/deconditioning P: -IVF, replace electrolytes as needed.. -Analgesics. -Dr. Espinoza for orthopedic surgery -cont home norvasc, d/c home hctz for hyponatremia -Aspirin for surgery -Basal and SSI -Delirium bundle. -PT/OT -CM for placement -ppx: SCD and post-op per ortho / home ppi Time Spent With Patient Time: Total time spent is greater than 50% in coordination of care (as documented) at patient's floor/unit and/or counseling patient: QUALITY VTE Deep Vein Thrombosis/Pulmonary Embolism Present on Admission: No
[2021-06-01] MEDS ORDERED: TRANEXAMIC ACID 1,000 MG/10 ML VIAL IV ONE (19:29)
[2021-06-01] MEDS: TAMSULOSIN 0.4 MG CAPSULE PO SCH (21:18)
[2021-06-01] MEDS: SIMVASTATIN 10 MG TABLET PO SCH (21:18)
[2021-06-02] MEDS: ceFAZolin 1 GM VIAL IV SCH ×2 (00:02→07:56)
--- NOTE | 2021-06-02 01:10 | XRay Report ---
CLINICAL INFORMATION: Right subcapital hip fracture. FINDINGS: The right hip prostheses is anatomically aligned. The left hip is normal. There are no osseous abnormalities. Soft tissue swelling over the surgical site-as expected. Radiation seeds in the expected location of the prostate as previously seen IMPRESSION: Right hip prostheses in anatomic alignment. Interpreted and Authenticated by: Eduar Tenorio 06/02/21
[2021-06-02] MEDS: morphine 2 MG/ML VIAL IV PRN (04:22)
[2021-06-02] MEDS: 0.9 % SODIUM CHLORIDE 10 ML SYRINGE IV SCH ×3 (04:23→20:56)
[2021-06-02] MEDS: ACETAMINOPHEN 1,000 MG/100 ML BAG IV SCH ×3 (05:17→20:54)
[2021-06-02] MEDS: 0.9 % SODIUM CHLORIDE 1,000 ML IV SCH ×4 (06:50→19:18)
--- NOTE | 2021-06-02 07:37 | Orthopedic Progress Note ---
SUBJECTIVE Subjective Patient information: Note initiated : 06/02/21 at 7:34 am Service Date, if different from initiated Date: [] Patient: Mandi Bahena 86 y/o M admitted on 05/31/21 for Hip pain. Chief Complaint: [] Interval history: POD 1 s/p right hip hemiarthroplasty. Patient doing well participating in PT and pain is well controlled. He denies any numbness or tingling, CP, FERNANDEZ, or any other acute symptoms. Constitutional Vitals: Vital Signs Temp Pulse Resp BP Pulse Ox 97.9 F 65 16 156/75 95 06/02/21 04:20 06/02/21 04:20 06/02/21 04:20 06/02/21 04:20 06/02/21 04:20 Period Temp Pulse Resp BP Sys/Davalos Pulse Ox Last 24 Hr 97.2 F-101.4 F 49-76 01-16 80-167/42-117 88-100 Intake and Output 06/01/21 06/02/21 06/02/21 21:59 05:59 13:59 Intake Total 3050 0 100 Output Total 1425 550 Balance 1625 -550 100 Intake & Output: Intake & Output 06/01/21 06/02/21 06/02/21 21:59 05:59 13:59 Intake Total 3050 0 100 Output Total 1425 550 Balance 1625 -550 100 Intake: IV 1250 100 Sodium Chloride 0.9% 1,000 ml @ 1000 84 mls/hr IV .[id number] [facility] Rx#: [id number] Ancef 2 gm In Dextrose 5% in 50 Water 50 ml @ 100 mls/hr IV PREOP [facility] Rx#:[id number] Oral 0 IV - Manual Only 1800 Output: Urine Catheter Amount 1425 550 Other: Urine Appearance Clear Clear Urine Color Pale Bright Yellow Urine Odor Normal Additional findings Additional findings: Exam of the RLE reveals dressings dry and in place, NVI in the entire RLE, able to ambulate with assistance of a walker. OBJ DATA Labs CBC & Chem 7: 05/31/21 07:18 06/01/21 05:13 Labs: Abnormal Lab Results 06/01/21 06/01/21 06/01/21 05:13 05:13 05:13 RBC Hgb Hct MCV MCH Neut % (Auto) Lymph % (Auto) Lymph # (Auto) Seg Neutrophils % Lymphocytes % RBC Morphology Macrocytosis Sodium 130 L Potassium Chloride Anion Gap BUN 29 H Creatinine 1.3 H Glucose 139 H Calcium 8.4 L Phosphorus 1.7 L AST 40 H Total Creatine Kinase 787 H Folate > 20.0 H Urine Appearance Urine Protein Urine Occult Blood Urine Mucus 05/31/21 05/31/21 05/31/21 08:30 07:18 07:18 RBC Hgb Hct MCV MCH Neut % (Auto) Lymph % (Auto) Lymph # (Auto) Seg Neutrophils % 83 H Lymphocytes % 7 L RBC Morphology Abnormal A Macrocytosis 1+ A Sodium 128 L Potassium 2.9 L* Chloride 89 L Anion Gap 17.0 H BUN 44 H Creatinine 1.6 H Glucose 211 H Calcium Phosphorus AST Total Creatine Kinase 497 H Folate Urine Appearance Hazy A Urine Protein 30 A Urine Occult Blood >=1.0 A Urine Mucus Few A 05/31/21 07:18 RBC 3.31 L Hgb 12.1 L Hct 33.7 L MCV 101.8 H MCH 36.6 H Neut % (Auto) 84.4 H Lymph % (Auto) 5.5 L Lymph # (Auto) 0.35 L Seg Neutrophils % Lymphocytes % RBC Morphology Macrocytosis Sodium Potassium Chloride Anion Gap BUN Creatinine Glucose Calcium Phosphorus AST Total Creatine Kinase Folate Urine Appearance Urine Protein Urine Occult Blood Urine Mucus Meds: Medications Hydrocodone Bitart/Acetaminophen (Hydrocodone/Apap 5/325mg Tablet) 0 tab PO Q4HP PRN; Protocol PRN Reason: Per Pain Protocol Albuterol/Ipratropium (Ipratropium/Albuterol 3 Ml Ampul.Neb) 3 ml NEB Q4HP PRN PRN Reason: Shortness Of Breath Cefazolin Sodium (Cefazolin 1 Gm Vial) 2 gm IV Q8H [facility] Stop: 06/02/21 09:00 Last Admin: 06/02/21 00:02 Dose: 2 gm Documented by: Dextrose (Dextrose 50% 50 Ml Syringe) 0 ml IV UD PRN PRN Reason: Hypoglycemia Diagnostic Test (Pha) (Accu-Chek 1 Each Strip) 1 each FS ACHS [facility] Last Admin: 06/01/21 22:14 Dose: 1 each Documented by: Docusate Sodium (Docusate Sodium 100 Mg Capsule) 100 mg PO BID [facility] Last Admin: 06/01/21 21:18 Dose: Not Given Documented by: Glucose (Dextrose 31 Gm Oral.Susp) 15 gm PO PRN PRN PRN Reason: Hypoglycemia Heparin Sodium (Porcine) (Heparin 5,000 Unit/Ml Vial) 5,000 unit SQ Q12 [facility] Potassium Chloride 40 meq/ (Dextrose) 520 mls @ 130 mls/hr IV UD PRN PRN Reason: Potassium < 3 Magnesium Sulfate (Magnesium Sulfate) 2 gm in 50 mls @ 50 mls/hr IV UD PRN PRN Reason: Magnesium </= 1.6 Acetaminophen (Ofirmev) 1,000 mg in 100 mls @ 200 mls/hr IV Q8H [facility]; Protocol Last Infusion: 06/02/21 06:05 Dose: Infused Documented by: Sodium Chloride (Sodium Chloride 0.9%) 1,000 mls @ 100 mls/hr IV .Q10H [facility] Last Admin: 06/02/21 06:50 Dose: Not Given Documented by: Insulin Human Lispro (Insulin Lispro 1 Unit/0.01 Ml Unit) 0 unit SQ ACHS [facility]; Protocol Last Admin: 06/01/21 22:14 Dose: 6 unit Documented by: Labetalol HCl (Labetalol 5 Mg/Ml Ml) 0 mg IV Q2HP PRN PRN Reason: Hypertension Levothyroxine Sodium (Levothyroxine 125 Mcg Tablet) 125 mcg PO QAMAC [facility] Last Admin: 06/01/21 08:12 Dose: Not Given Documented by: Magnesium Hydroxide (Magnesium Hydroxide 30 Ml Oral.Susp) 30 ml PO BIDP PRN PRN Reason: Constipation Morphine Sulfate (Morphine 4 Mg/Ml Vial) 0 mg IV Q1HP PRN; Protocol PRN Reason: Per Pain Protocol Ondansetron HCl (Ondansetron 4 Mg/2 Ml Vial) 4 mg IV Q4HP PRN PRN Reason: Nausea And Vomiting Oxycodone HCl (Oxycodone Hcl 5 Mg Tablet) 5 mg PO Q6HP PRN; Protocol PRN Reason: Per Pain Protocol Polyethylene Glycol (Polyethylene Glycol 3350 17 Gm Packet) 17 gm PO DAILYP PRN PRN Reason: Constipation Potassium Chloride (Potassium Chloride 20 Meq Tablet) 40 meq PO UD PRN PRN Reason: Potssium is 3-3.5 Potassium Chloride (Potassium Chloride 20 Meq Tablet) 40 meq PO UD PRN PRN Reason: Potassium < 3 Senna (Sennosides 1 Tablet) 2 tab PO DAILYP PRN PRN Reason: Constipation Simvastatin (Simvastatin 10 Mg Tablet) 10 mg PO [facility] Last Admin: 06/01/21 21:18 Dose: Not Given Documented by: Sodium Chloride (0.9 % Sodium Chloride 10 Ml Syringe) 10 ml IV Q8 [facility] Last Admin: 06/02/21 04:23 Dose: 10 ml Documented by: Tamsulosin HCl (Tamsulosin 0.4 Mg Capsule) 0.4 mg PO [facility] Last Admin: 06/01/21 21:18 Dose: Not Given Documented by: Throat Lozenges (Benzocaine/Menthol 1 Lozenge) 1 lozenge PO PRN PRN PRN Reason: Sore Throat Vitamin D (Vitamin D3 25 Mcg Tablet) 50 mcg PO DAILY [facility] Last Admin: 06/01/21 08:12 Dose: Not Given Documented by: A/P Narrative A/P Narrative: POD 1 s/p right hip hemiarthroplasty weightbearing as tolerated, work with PT Medicine per hospitalist Plan for discharge in next 1-2 days to either home or SNF based on patients PT results and home help. Time Spent With Patient Time: Total time spent is greater than 50% in coordination of care (as documented) at patient's floor/unit and/or counseling patient:
[2021-06-02] MEDS: LEVOTHYROXINE 125 MCG TABLET PO SCH ×2 (07:58→12:23)
[2021-06-02] MEDS: INSULIN LISPRO 1 UNIT/0.01 ML UNIT SQ SCH ×4 (07:58→20:56)
[2021-06-02 08:57] LABS: Basophils # (Auto) 0.01 K/mcL (0.00-0.30); Basophils % (Auto) 0.1 % (0.0-2.0); Eosinophils # (Auto) 0 K/mcL (0.00-0.70); Eosinophils % (Auto) 0 % (0.0-7.0); Hematocrit 31.8 % (40.1-51.0); Hemoglobin 10.9 g/dL (13.7-17.5); Lymphocytes # (Auto) 0.42 K/mcL (1.50-4.80); Lymphocytes % (Auto) 3.4 % (15.5-49.0); Mean Cell Volume 102.3 fL (80.0-100.0); Mean Corpuscular HGB Conc 34.3 g/dL (31.0-36.0); Mean Platelet Volume 9.8 fL (7.4-10.4); Monocytes # (Auto) 0.72 K/mcL (0.10-0.90); Monocytes % (Auto) 5.9 % (1.0-12.0); Neutrophils % (Auto) 90.6 % (38.0-78.0); Platelet Count 213 K/mcL (140-440); RBC 3.11 M/mcL (4.63-6.08); Red Cell Distribution Width 13.5 % (11.5-14.5); WBC 12.3 K/mcL (4.5-11.0)
[2021-06-02 09:31] LABS: ALT/SGPT 10 U/L (<40); AST/SGOT 36 U/L (<40); Albumin 3.4 gm/dL (3.2-5.2); Albumin/Globulin Ratio 1.1 (1.0-2.3); Alkaline Phosphatase 53 U/L (39-117); Bilirubin,Direct < 0.2 mg/dL (0-0.3); Bilirubin,Total 0.4 mg/dL (0.1-1.0); Blood Urea Nitrogen 30 mg/dL (8-23); Calcium 7.9 mg/dL (8.6-10.4); Carbon Dioxide 21 mmol/L (22-30); Chloride 96 mmol/L (96-108); Globulin 3.1 gm/dL (2.2-3.7); Glomerular Filtration Rate 49; Glucose 194 mg/dL (70-105); Lactate Dehydrogenase 201 U/L (135-225); Triglycerides 80 mg/dL (<150); Uric Acid 5.6 mg/dL (2.5-8.0)
[2021-06-02] MEDS: DOCUSATE SODIUM 100 MG CAPSULE PO SCH ×2 (10:11→20:56)
[2021-06-02] MEDS: VITAMIN D3 25 MCG TABLET PO SCH ×2 (10:11→12:22)
[2021-06-02] MEDS: HEPARIN 5,000 UNIT/ML VIAL SQ SCH ×3 (10:11→20:55)
[2021-06-02] MEDS: HYDROcodone/APAP 5/325MG TABLET PO PRN (14:25)
--- NOTE | 2021-06-02 16:32 | Internal Med Progress Note ---
SUBJECTIVE Subjective Patient information: Note initiated : 06/02/21 at 4:30 pm Service Date, if different from initiated Date: [] Patient: Mandi Bahena a 86 y/o M admitted on 05/31/21 for Hip pain. Chief Complaint: [] Interval history: Mr. Bahena is a 86 year old M Presents to the ED with right hip pain. He got up around 1 in the morning to go to the bathroom and while ambulating bathroom he fell hit his face believe he passed out. Per she says he told her he got dizzy she doesn't know if he passed out or not. Denies any chest pain or shortness of breath. Is on baby aspirin, but no anticoagulation. Patient got back up in the bed and then called EMS in the morning realizing severe pain. CT head in the ED was unremarkable. He did finish antibiotics yesterday for right otitis media. In the ED is found to be hyponatremic 128 with low potassium 2.9.. Of BUN creatinine above baseline. Patient was given IV fluid in the ED. He also had a fever in the ED but chest x-ray and urinalysis is unremarkable. No leukocytosis, will check band count. Mildly elevated CPK likely from tissue damage from the fall. Troponin negative. 06/01 Sodium improved to 130, hypokalemia resolved, renal function improved, surgery planned for today. Likely aspirated after surgery when family gave the patient some food, speech consulted. 06/02 More alert today, had ORIF yesterday. On dysphagia diet per speech recommendation. Remove montero catheter, discontinue IV fluid. Working with PT. Physical exam Head: Atraumatic, normal inspection. Eyes: normal appearance, no scleral icterus. Neck: full ROM Respiratory: no respiratory distress. Cardiovascular: normal rate and rhythm, S1, S2. GI/Abdominal: soft, nontender, no guarding. Extremities: Right hip tenderness Neurological: CN II-XII intact, intact motor, intact sensation. Psychiatric: normal mood. Skin: warm, normal color Constitutional Vitals: Vital Signs Temp Pulse Resp BP Pulse Ox 97.9 F 70 20 136/62 94 06/02/21 12:00 06/02/21 12:00 06/02/21 12:00 06/02/21 12:00 06/02/21 12:00 Period Temp Pulse Resp BP Sys/Davalos Pulse Ox Last 24 Hr 97.2 F-98.2 F 49-71 - 80-167/42-117 88-100 Intake and Output 06/02/21 06/02/21 06/02/21 05:59 13:59 21:59 Intake Total 0 1100 Output Total 550 Balance -550 1100 Weight 58.967 kg Patient Weight 06/03/21 05:59 Weight 58.967 kg Intake & Output: Intake & Output 06/02/21 06/02/21 06/02/21 05:59 13:59 21:59 Intake Total 0 1100 Output Total 550 Balance -550 1100 Weight 58.967 kg Intake: IV 1100 Sodium Chloride 0.9% 1,000 ml @ 1000 100 mls/hr IV .Q10H [facility] Rx#: [id number] Oral 0 Output: Urine Catheter Amount 550 Other: Urine Appearance Clear Uretheral (Montero) Clear Urine Color Bright Yellow Uretheral (Montero) Bright Yellow OBJ DATA Labs CBC & Chem 7: 06/02/21 08:27 06/02/21 08:27 Labs: Abnormal Lab Results 06/02/21 06/02/21 06/01/21 08:27 08:27 05:13 WBC 12.3 H RBC 3.11 L Hgb 10.9 L Hct 31.8 L MCV 102.3 H MCH 35.0 H Neut % (Auto) 90.6 H Lymph % (Auto) 3.4 L Lymph # (Auto) 0.42 L Seg Neutrophils % Lymphocytes % Absolute Neutrophils 11.10 H RBC Morphology Macrocytosis Sodium 130 L Potassium Chloride Carbon Dioxide 21 L Anion Gap BUN 30 H 29 H Creatinine 1.3 H 1.3 H Glucose 194 H 139 H Calcium 7.9 L 8.4 L Phosphorus 1.7 L AST 40 H Total Creatine Kinase Folate Urine Appearance Urine Protein Urine Occult Blood Urine Mucus 06/01/21 06/01/21 05/31/21 05:13 05:13 08:30 WBC RBC Hgb Hct MCV MCH Neut % (Auto) Lymph % (Auto) Lymph # (Auto) Seg Neutrophils % Lymphocytes % Absolute Neutrophils RBC Morphology Macrocytosis Sodium Potassium Chloride Carbon Dioxide Anion Gap BUN Creatinine Glucose Calcium Phosphorus AST Total Creatine Kinase 787 H Folate > 20.0 H Urine Appearance Hazy A Urine Protein 30 A Urine Occult Blood >=1.0 A Urine Mucus Few A 05/31/21 05/31/21 05/31/21 07:18 07:18 07:18 WBC RBC 3.31 L Hgb 12.1 L Hct 33.7 L MCV 101.8 H MCH 36.6 H Neut % (Auto) 84.4 H Lymph % (Auto) 5.5 L Lymph # (Auto) 0.35 L Seg Neutrophils % 83 H Lymphocytes % 7 L Absolute Neutrophils RBC Morphology Abnormal A Macrocytosis 1+ A Sodium 128 L Potassium 2.9 L* Chloride 89 L Carbon Dioxide Anion Gap 17.0 H BUN 44 H Creatinine 1.6 H Glucose 211 H Calcium Phosphorus AST Total Creatine Kinase 497 H Folate Urine Appearance Urine Protein Urine Occult Blood Urine Mucus Meds: Medications Hydrocodone Bitart/Acetaminophen (Hydrocodone/Apap 5/325mg Tablet) 0 tab PO Q4HP PRN; Protocol PRN Reason: Per Pain Protocol Last Admin: 06/02/21 14:25 Dose: 2 tab Documented by: Albuterol/Ipratropium (Ipratropium/Albuterol 3 Ml Ampul.Neb) 3 ml NEB Q4HP PRN PRN Reason: Shortness Of Breath Dextrose (Dextrose 50% 50 Ml Syringe) 0 ml IV UD PRN PRN Reason: Hypoglycemia Diagnostic Test (Pha) (Accu-Chek 1 Each Strip) 1 each FS ACHS [facility] Last Admin: 06/02/21 11:54 Dose: 1 each Documented by: Docusate Sodium (Docusate Sodium 100 Mg Capsule) 100 mg PO BID [facility] Last Admin: 06/02/21 10:11 Dose: Not Given Documented by: Glucose (Dextrose 31 Gm Oral.Susp) 15 gm PO PRN PRN PRN Reason: Hypoglycemia Heparin Sodium (Porcine) (Heparin 5,000 Unit/Ml Vial) 5,000 unit SQ Q12 [facility] Last Admin: 06/02/21 12:21 Dose: 5,000 unit Documented by: Potassium Chloride 40 meq/ (Dextrose) 520 mls @ 130 mls/hr IV UD PRN PRN Reason: Potassium < 3 Magnesium Sulfate (Magnesium Sulfate) 2 gm in 50 mls @ 50 mls/hr IV UD PRN PRN Reason: Magnesium </= 1.6 Acetaminophen (Ofirmev) 1,000 mg in 100 mls @ 200 mls/hr IV Q8H [facility]; Protocol Last Admin: 06/02/21 15:50 Dose: 200 mls/hr Documented by: Sodium Chloride (Sodium Chloride 0.9%) 1,000 mls @ 100 mls/hr IV .Q10H [facility] Last Admin: 06/02/21 07:57 Dose: 100 mls/hr Documented by: Insulin Human Lispro (Insulin Lispro 1 Unit/0.01 Ml Unit) 0 unit SQ [facility]; Protocol Last Admin: 06/02/21 11:54 Dose: 6 unit Documented by: Labetalol HCl (Labetalol 5 Mg/Ml Ml) 0 mg IV Q2HP PRN PRN Reason: Hypertension Levothyroxine Sodium (Levothyroxine 125 Mcg Tablet) 125 mcg PO QAMAC [facility] Last Admin: 06/02/21 12:23 Dose: 125 mcg Documented by: Magnesium Hydroxide (Magnesium Hydroxide 30 Ml Oral.Susp) 30 ml PO BIDP PRN PRN Reason: Constipation Morphine Sulfate (Morphine 4 Mg/Ml Vial) 0 mg IV Q1HP PRN; Protocol PRN Reason: Per Pain Protocol Last Admin: 06/02/21 10:04 Dose: 2 mg Documented by: Ondansetron HCl (Ondansetron 4 Mg/2 Ml Vial) 4 mg IV Q4HP PRN PRN Reason: Nausea And Vomiting Oxycodone HCl (Oxycodone Hcl 5 Mg Tablet) 5 mg PO Q6HP PRN; Protocol PRN Reason: Per Pain Protocol Last Admin: 06/02/21 15:51 Dose: 5 mg Documented by: Polyethylene Glycol (Polyethylene Glycol 3350 17 Gm Packet) 17 gm PO DAILYP PRN PRN Reason: Constipation Potassium Chloride (Potassium Chloride 20 Meq Tablet) 40 meq PO UD PRN PRN Reason: Potssium is 3-3.5 Potassium Chloride (Potassium Chloride 20 Meq Tablet) 40 meq PO UD PRN PRN Reason: Potassium < 3 Senna (Sennosides 1 Tablet) 2 tab PO DAILYP PRN PRN Reason: Constipation Simvastatin (Simvastatin 10 Mg Tablet) 10 mg PO [facility] Last Admin: 06/01/21 21:18 Dose: Not Given Documented by: Sodium Chloride (0.9 % Sodium Chloride 10 Ml Syringe) 10 ml IV Q8 [facility] Last Admin: 06/02/21 14:24 Dose: Not Given Documented by: Tamsulosin HCl (Tamsulosin 0.4 Mg Capsule) 0.4 mg PO [facility] Last Admin: 06/01/21 21:18 Dose: Not Given Documented by: Throat Lozenges (Benzocaine/Menthol 1 Lozenge) 1 lozenge PO PRN PRN PRN Reason: Sore Throat Vitamin D (Vitamin D3 25 Mcg Tablet) 50 mcg PO DAILY [facility] Last Admin: 06/02/21 12:22 Dose: 50 mcg Documented by: A/P Narrative A/P Narrative: A: *Right hip fracture s/p ORIF *Hyponatremia *Volume depletion: *likely orthostatic hypotension/syncope prehospital: *GIOVANNI on CKD IIIb: *Fever: ?reactive from pain/fracture vs other. UA/CXR unremarkable. -Just finished antibiotic course for right otitis media *Macrocytic anemia, chronic: *DM: *HTN/HLD: *Hypothyroidism: *GERD: *Generalized weakness/deconditioning *Dysphagia P: -Analgesics. -Dr. Espinoza for orthopedic surgery -cont home norvasc, d/c home hctz for hyponatremia -Aspirin for surgery -Basal and SSI -Delirium bundle. -Dysphagia diet per speech -PT/OT/Speech -CM for placement -ppx: SCD and post-op per ortho / home ppi Time Spent With Patient Time: Total time spent is greater than 50% in coordination of care (as documented) at patient's floor/unit and/or counseling patient: QUALITY VTE Deep Vein Thrombosis/Pulmonary Embolism Present on Admission: No
[2021-06-02] MEDS: SIMVASTATIN 10 MG TABLET PO SCH (20:56)
[2021-06-02] MEDS: TAMSULOSIN 0.4 MG CAPSULE PO SCH (20:56)
[2021-06-03] MEDS: 0.9 % SODIUM CHLORIDE 1,000 ML IV SCH (05:01)
[2021-06-03] MEDS: 0.9 % SODIUM CHLORIDE 10 ML SYRINGE IV SCH ×3 (05:13→21:22)
[2021-06-03] MEDS: ACETAMINOPHEN 1,000 MG/100 ML BAG IV SCH ×3 (05:13→21:21)
--- NOTE | 2021-06-03 07:34 | General Surgery Progress Note ---
Surgery - Auxiliary Note Subjective Patient Information: Note initiated : 06/03/21 at 7:32 am Service Date, if different from initiated Date: [] Patient: Mandi Bahena 86 y/o M admitted on 05/31/21 for Hip pain. Chief Complaint: Mild to moderate pain. Anxious to discharge and start the rehab process. bandages c/d/i nvi-distal A/P: 2 days s/p R mihaela hip arthroplasty-stable Mobilize with PT discharge to SNF today. f/u at [facility] 2 weeks for staple removal. WBAT. leave silver dressing intact til f/u.
[2021-06-03] MEDS: INSULIN LISPRO 1 UNIT/0.01 ML UNIT SQ SCH ×4 (07:37→21:22)
[2021-06-03] MEDS: LEVOTHYROXINE 125 MCG TABLET PO SCH (07:38)
[2021-06-03 08:24] LABS: Basophils # (Auto) 0.01 K/mcL (0.00-0.30); Basophils % (Auto) 0.1 % (0.0-2.0); Eosinophils # (Auto) 0.01 K/mcL (0.00-0.70); Eosinophils % (Auto) 0.1 % (0.0-7.0); Hematocrit 28.7 % (40.1-51.0); Lymphocytes # (Auto) 0.68 K/mcL (1.50-4.80); Mean Cell Volume 102.1 fL (80.0-100.0); Mean Corpuscular HGB Conc 34.8 g/dL (31.0-36.0); Mean Platelet Volume 10.1 fL (7.4-10.4); Monocytes # (Auto) 0.73 K/mcL (0.10-0.90); Monocytes % (Auto) 7.5 % (1.0-12.0); Neutrophils % (Auto) 85.3 % (38.0-78.0); Platelet Count 236 K/mcL (140-440); RBC 2.81 M/mcL (4.63-6.08); Red Cell Distribution Width 13.5 % (11.5-14.5); WBC 9.8 K/mcL (4.5-11.0)
[2021-06-03] MEDS: VITAMIN D3 25 MCG TABLET PO SCH (10:05)
[2021-06-03] MEDS: DOCUSATE SODIUM 100 MG CAPSULE PO SCH ×2 (10:06→21:22)
[2021-06-03] MEDS: HEPARIN 5,000 UNIT/ML VIAL SQ SCH ×2 (10:06→21:22)
[2021-06-03] MEDS: HYDROcodone/APAP 5/325MG TABLET PO PRN (11:47)
--- NOTE | 2021-06-03 14:09 | Internal Med Progress Note ---
SUBJECTIVE Subjective Patient information: Note initiated : 06/03/21 at 2:07 pm Service Date, if different from initiated Date: [] Patient: Mandi Bahena 86 y/o M admitted on 05/31/21 for Hip pain. Chief Complaint: [] Interval history: Mr. Bahena is a 86 year old M Presents to the ED with right hip pain. He got up around 1 in the morning to go to the bathroom and while ambulating bathroom he fell hit his face believe he passed out. Per she says he told her he got dizzy she doesn't know if he passed out or not. Denies any chest pain or shortness of breath. Is on baby aspirin, but no anticoagulation. Patient got back up in the bed and then called EMS in the morning realizing severe pain. CT head in the ED was unremarkable. He did finish antibiotics yesterday for right otitis media. In the ED is found to be hyponatremic 128 with low potassium 2.9.. Of BUN creatinine above baseline. Patient was given IV fluid in the ED. He also had a fever in the ED but chest x-ray and urinalysis is unremarkable. No leukocytosis, will check band count. Mildly elevated CPK likely from tissue damage from the fall. Troponin negative. 06/01 Sodium improved to 130, hypokalemia resolved, renal function improved, surgery planned for today. Likely aspirated after surgery when family gave the patient some food, speech consulted. 06/02 More alert today, had ORIF yesterday. On dysphagia diet per speech recommendation. Remove montero catheter, discontinue IV fluid. Working with PT. 06/03 Urinary retention after montero was removed, will replace montero catheter. Also had some hematuria. Awaiting placement. Physical exam Head: Atraumatic, normal inspection. Eyes: normal appearance, no scleral icterus. Neck: full ROM Respiratory: no respiratory distress. Cardiovascular: normal rate and rhythm, S1, S2. GI/Abdominal: soft, nontender, no guarding. Extremities: Right hip tenderness Neurological: CN II-XII intact, intact motor, intact sensation. Psychiatric: normal mood. Skin: warm, normal color Constitutional Vitals: Vital Signs Temp Pulse Resp BP Pulse Ox 98.3 F 88 18 148/73 94 06/03/21 12:00 06/03/21 12:00 06/03/21 12:00 06/03/21 12:00 06/03/21 12:00 Period Temp Pulse Resp BP Sys/Davalos Pulse Ox Last 24 Hr 97.3 F-98.5 F 62-88 18-20 129-149/59-73 91-95 Intake and Output 06/03/21 06/03/21 06/03/21 05:59 13:59 21:59 Intake Total 620 200 Output Total 425 50 Balance 195 150 Intake & Output: Intake & Output 06/03/21 06/03/21 06/03/21 05:59 13:59 21:59 Intake Total 620 200 Output Total 425 50 Balance 195 150 Intake: IV 200 Oral 420 200 Output: Urine Catheter Amount 425 Uretheral (Montero) 50 Void Amount 50 Other: Meal Lunch Percent of Meal Consumed Refused Feeding Ability Independent Urine Appearance Clear Uretheral (Montero) Clear Urine Color Bright Yellow Dark Red Uretheral (Montero) Straw Urine Odor Normal Uretheral (Montero) Normal Stool Size Moderate Stool Color Brown Stool Consistency Soft # Bowel Movements 1 OBJ DATA Labs CBC & Chem 7: 06/03/21 07:54 06/02/21 08:27 Labs: Abnormal Lab Results 06/03/21 06/02/21 06/02/21 07:54 08:27 08:27 WBC 12.3 H RBC 2.81 L 3.11 L Hgb 10.0 L 10.9 L Hct 28.7 L 31.8 L MCV 102.1 H 102.3 H MCH 35.6 H 35.0 H Neut % (Auto) 85.3 H 90.6 H Lymph % (Auto) 7.0 L 3.4 L Lymph # (Auto) 0.68 L 0.42 L Absolute Neutrophils 8.32 H 11.10 H Sodium Carbon Dioxide 21 L BUN 30 H Creatinine 1.3 H Glucose 194 H Calcium 7.9 L Phosphorus AST Total Creatine Kinase Folate 06/01/21 06/01/21 06/01/21 05:13 05:13 05:13 WBC RBC Hgb Hct MCV MCH Neut % (Auto) Lymph % (Auto) Lymph # (Auto) Absolute Neutrophils Sodium 130 L Carbon Dioxide BUN 29 H Creatinine 1.3 H Glucose 139 H Calcium 8.4 L Phosphorus 1.7 L AST 40 H Total Creatine Kinase 787 H Folate > 20.0 H Meds: Medications Hydrocodone Bitart/Acetaminophen (Hydrocodone/Apap 5/325mg Tablet) 0 tab PO Q4HP PRN; Protocol PRN Reason: Per Pain Protocol Last Admin: 06/03/21 11:47 Dose: 2 tab Documented by: Albuterol/Ipratropium (Ipratropium/Albuterol 3 Ml Ampul.Neb) 3 ml NEB Q4HP PRN PRN Reason: Shortness Of Breath Dextrose (Dextrose 50% 50 Ml Syringe) 0 ml IV UD PRN PRN Reason: Hypoglycemia Diagnostic Test (Pha) (Accu-Chek 1 Each Strip) 1 each FS ACHS [facility] Last Admin: 06/03/21 11:52 Dose: 1 each Documented by: Docusate Sodium (Docusate Sodium 100 Mg Capsule) 100 mg PO BID [facility] Last Admin: 06/03/21 10:06 Dose: 100 mg Documented by: Glucose (Dextrose 31 Gm Oral.Susp) 15 gm PO PRN PRN PRN Reason: Hypoglycemia Heparin Sodium (Porcine) (Heparin 5,000 Unit/Ml Vial) 5,000 unit SQ Q12 [facility] Last Admin: 06/03/21 10:06 Dose: 5,000 unit Documented by: Potassium Chloride 40 meq/ (Dextrose) 520 mls @ 130 mls/hr IV UD PRN PRN Reason: Potassium < 3 Magnesium Sulfate (Magnesium Sulfate) 2 gm in 50 mls @ 50 mls/hr IV UD PRN PRN Reason: Magnesium </= 1.6 Acetaminophen (Ofirmev) 1,000 mg in 100 mls @ 200 mls/hr IV Q8H [facility]; Protocol Last Infusion: 06/03/21 05:50 Dose: Infused Documented by: Insulin Human Lispro (Insulin Lispro 1 Unit/0.01 Ml Unit) 0 unit SQ [facility]; Protocol Last Admin: 06/03/21 12:20 Dose: 6 unit Documented by: Labetalol HCl (Labetalol 5 Mg/Ml Ml) 0 mg IV Q2HP PRN PRN Reason: Hypertension Levothyroxine Sodium (Levothyroxine 125 Mcg Tablet) 125 mcg PO QAMAC [facility] Last Admin: 06/03/21 07:38 Dose: 125 mcg Documented by: Magnesium Hydroxide (Magnesium Hydroxide 30 Ml Oral.Susp) 30 ml PO BIDP PRN PRN Reason: Constipation Morphine Sulfate (Morphine 4 Mg/Ml Vial) 0 mg IV Q1HP PRN; Protocol PRN Reason: Per Pain Protocol Last Admin: 06/02/21 10:04 Dose: 2 mg Documented by: Ondansetron HCl (Ondansetron 4 Mg/2 Ml Vial) 4 mg IV Q4HP PRN PRN Reason: Nausea And Vomiting Oxycodone HCl (Oxycodone Hcl 5 Mg Tablet) 5 mg PO Q6HP PRN; Protocol PRN Reason: Per Pain Protocol Last Admin: 06/02/21 15:51 Dose: 5 mg Documented by: Polyethylene Glycol (Polyethylene Glycol 3350 17 Gm Packet) 17 gm PO DAILYP PRN PRN Reason: Constipation Potassium Chloride (Potassium Chloride 20 Meq Tablet) 40 meq PO UD PRN PRN Reason: Potssium is 3-3.5 Potassium Chloride (Potassium Chloride 20 Meq Tablet) 40 meq PO UD PRN PRN Reason: Potassium < 3 Senna (Sennosides 1 Tablet) 2 tab PO DAILYP PRN PRN Reason: Constipation Simvastatin (Simvastatin 10 Mg Tablet) 10 mg PO [facility] Last Admin: 06/02/21 20:56 Dose: 10 mg Documented by: Sodium Chloride (0.9 % Sodium Chloride 10 Ml Syringe) 10 ml IV Q8 [facility] Last Admin: 06/03/21 05:13 Dose: 10 ml Documented by: Tamsulosin HCl (Tamsulosin 0.4 Mg Capsule) 0.4 mg PO [facility] Last Admin: 06/02/21 20:56 Dose: 0.4 mg Documented by: Throat Lozenges (Benzocaine/Menthol 1 Lozenge) 1 lozenge PO PRN PRN PRN Reason: Sore Throat Vitamin D (Vitamin D3 25 Mcg Tablet) 50 mcg PO DAILY [facility] Last Admin: 06/03/21 10:05 Dose: 50 mcg Documented by: A/P Narrative A/P Narrative: A: *Right hip fracture s/p ORIF *Macrocytic anemia, chronic: *DM: *HTN/HLD: *Hypothyroidism: *GERD: *Generalized weakness/deconditioning *Dysphagia *Hematuria P: -Analgesics. -Dr. Espinoza for orthopedic surgery -cont home norvasc, d/c home hctz for hyponatremia -Aspirin for surgery -Basal and SSI -Delirium bundle. -Montero catheter -Dysphagia diet per speech -PT/OT/Speech -CM for placement -ppx: SCD and post-op per ortho / home ppi Time Spent With Patient Time: Total time spent is greater than 50% in coordination of care (as documented) at patient's floor/unit and/or counseling patient: QUALITY VTE Deep Vein Thrombosis/Pulmonary Embolism Present on Admission: No
[2021-06-03] MEDS: TAMSULOSIN 0.4 MG CAPSULE PO SCH (21:22)
[2021-06-03] MEDS: SIMVASTATIN 10 MG TABLET PO SCH (21:22)
[2021-06-04] MEDS: ACETAMINOPHEN 1,000 MG/100 ML BAG IV SCH (05:38)
[2021-06-04 07:01] LABS: Basophils # (Auto) 0.01 K/mcL (0.00-0.30); Basophils % (Auto) 0.1 % (0.0-2.0); Eosinophils # (Auto) 0.08 K/mcL (0.00-0.70); Eosinophils % (Auto) 0.8 % (0.0-7.0); Hematocrit 28.6 % (40.1-51.0); Hemoglobin 9.8 g/dL (13.7-17.5); Lymphocytes # (Auto) 0.84 K/mcL (1.50-4.80); Lymphocytes % (Auto) 8.4 % (15.5-49.0); Mean Corpuscular HGB Conc 34.3 g/dL (31.0-36.0); Mean Platelet Volume 10.2 fL (7.4-10.4); Monocytes # (Auto) 0.75 K/mcL (0.10-0.90); Monocytes % (Auto) 7.5 % (1.0-12.0); Neutrophils % (Auto) 83.2 % (38.0-78.0); Platelet Count 245 K/mcL (140-440); RBC 2.75 M/mcL (4.63-6.08); Red Cell Distribution Width 13.7 % (11.5-14.5)
[2021-06-04 07:31] LABS: ALT/SGPT < 5 U/L (<40); AST/SGOT 29 U/L (<40); Albumin 2.8 gm/dL (3.2-5.2); Alkaline Phosphatase 56 U/L (39-117); Bilirubin,Direct < 0.2 mg/dL (0-0.3); Bilirubin,Total 0.5 mg/dL (0.1-1.0); Blood Urea Nitrogen 18 mg/dL (8-23); Calcium 7.9 mg/dL (8.6-10.4); Carbon Dioxide 24 mmol/L (22-30); Chloride 98 mmol/L (96-108); Globulin 2.9 gm/dL (2.2-3.7); Glomerular Filtration Rate 67; Glucose 112 mg/dL (70-105); Lactate Dehydrogenase 178 U/L (135-225); Phosphorous 1.5 mg/dL (2.5-4.5); Triglycerides 99 mg/dL (<150); Uric Acid 4.3 mg/dL (2.5-8.0)
[2021-06-04] MEDS: INSULIN LISPRO 1 UNIT/0.01 ML UNIT SQ SCH (07:40)
[2021-06-04] MEDS: HEPARIN 5,000 UNIT/ML VIAL SQ SCH (08:10)
[2021-06-04] MEDS: 0.9 % SODIUM CHLORIDE 10 ML SYRINGE IV SCH (08:10)
[2021-06-04] MEDS: VITAMIN D3 25 MCG TABLET PO SCH (08:12)
[2021-06-04] MEDS: LEVOTHYROXINE 125 MCG TABLET PO SCH (08:12)
[2021-06-04] MEDS: DOCUSATE SODIUM 100 MG CAPSULE PO SCH (08:14)
[2021-06-04] MEDS ORDERED: POTASSIUM CHLORIDE 20 MEQ TABLET PO ONE (08:25)
[2021-06-04] MEDS ORDERED: NEUTRA PHOS 1 PACKET PO ONE (08:26)
--- NOTE | 2021-06-04 08:30 | Discharge Summary ---
Discharge Provider Provider Patient information: Note initiated : 06/04/21 at 8:28 am Service Date, if different from initiated Date: [] Patient: Mandi Bahena 86 y/o M admitted on 05/31/21 for Hip pain. Chief Complaint: [] Date of admission: 05/31/21 10:24 Discharge date: 06/04/21 Primary care physician: Benjamin Srinivasan MD Consults: 05/31/21 Consult to Physician [CONS] Stat Comment: Consulting Provider: Tae Espinoza Reason For Exam: Physician to Consult Consult to Physician [CONS] Stat Comment: Consulting Provider: Harry Rucker Reason For Exam: Physician to Consult 06/03/21 14:33 Consult to Physician [CONS] Routine Comment: [facility] Consulting Provider: [facility] Reason For Exam: Physician to Consult Discharge Meds Discharge Medications Home Medications cholecalciferol (vitamin D3) 50 mcg (2,000 unit) capsule 2,000 unit PO QDAY cap 09/12/14 [History Confirmed 05/31/21 Last Taken Unknown] amlodipine 5 mg tablet (Norvasc) 5 mg PO QDAY #90 tab 12/16/20 [Rx Confirmed 05/31/21 Last Taken Unknown] aspirin 81 mg chewable tablet 81 mg PO QDAY tab 01/15/21 [History Confirmed 05/31/21 Last Taken Unknown] levothyroxine 125 mcg tablet (Synthroid) 125 mcg PO QDAY #90 tab 05/22/21 [Rx Confirmed 05/31/21 Last Taken Unknown] Bifidobacterium infantis 4 mg capsule (Align) 4 mg PO QDAY 05/31/21 [History Confirmed 05/31/21 Last Taken Unknown] simvastatin 10 mg tablet (Zocor) 10 mg PO HS 05/31/21 [History Confirmed 05/31/21 Last Taken Unknown] tamsulosin 0.4 mg capsule (Flomax) 0.4 mg PO HS 05/31/21 [History Confirmed 05/31/21 Last Taken Unknown] telmisartan 80 mg-hydrochlorothiazide 25 mg tablet (Micardis HCT) 1 tab PO QDAY 05/31/21 [History Confirmed 05/31/21 Last Taken Unknown] enoxaparin 40 mg/0.4 mL subcutaneous syringe (Lovenox) 40 mg (0.4 mL) SUBCUT QDAY 25 Days #10 ml 06/04/21 [Rx Last Taken Unknown] polyethylene glycol 3350 17 gram oral powder packet (HealthyLax) 17 g PO DAILYP PRN #30 ea 06/04/21 [Rx Last Taken Unknown] sennosides 8.6 mg tablet (Senna Lax) 17.2 mg PO QDAY #30 tab 06/04/21 [Rx Last Taken Unknown] COURSE Hospital Course Hospital course: Mr. Bahena is a 86 year old M Presents to the ED with right hip pain. He got up around 1 in the morning to go to the bathroom and while ambulating bathroom he fell hit his face believe he passed out. Per she says he told her he got dizzy she doesn't know if he passed out or not. Denies any chest pain or shortness of breath. Is on baby aspirin, but no anticoagulation. Patient got back up in the bed and then called EMS in the morning realizing severe pain. CT head in the ED was unremarkable. He did finish antibiotics yesterday for right otitis media. In the ED is found to be hyponatremic 128 with low potassium 2.9.. Of BUN creatinine above baseline. Patient was given IV fluid in the ED. He also had a fever in the ED but chest x-ray and urinalysis is unremarkable. No leukocytosis, will check band count. Mildly elevated CPK likely from tissue damage from the fall. Troponin negative. 06/01 Sodium improved to 130, hypokalemia resolved, renal function improved, surgery planned for today. Likely aspirated after surgery when family gave the patient some food, speech consulted. 06/02 More alert today, had ORIF yesterday. On dysphagia diet per speech recommendation. Remove montero catheter, discontinue IV fluid. Working with PT. 06/03 Urinary retention after montero was removed, will replace montero catheter. Also had some hematuria. Awaiting placement. 06/04 Hematuria resolved, discharged to SNF for rehab. Continue Montero catheter for a few more days then removed followed by bladder scans to evaluate for urinary retention. Discharged on Lovenox for DVT prophylaxis. Physical exam Head: Atraumatic, normal inspection. Eyes: normal appearance, no scleral icterus. Neck: full ROM Respiratory: no respiratory distress. Cardiovascular: normal rate and rhythm, S1, S2. GI/Abdominal: soft, nontender, no guarding. Extremities: Right hip tenderness Neurological: CN II-XII intact, intact motor, intact sensation. Psychiatric: normal mood. Skin: warm, normal color Discharge diagnosis: Right hip fracture Time Spent with Patient Time attestation: Total time spent providing and/or coordinating discharge services: EXAM Constitutional Vitals: Temp Pulse Resp BP Pulse Ox 98.3 F 68 16 154/71 91 06/04/21 03:30 06/04/21 03:30 06/04/21 03:30 06/04/21 03:30 06/04/21 03:30 Discharge Data Data Completed and Pending Labs on day of discharge: Labs from last 24 hours 06/04/21 06/04/21 06:32 06:32 WBC 10.0 RBC 2.75 L Hgb 9.8 L Hct 28.6 L MCV 104.0 H MCH 35.6 H MCHC 34.3 RDW 13.7 Plt Count 245 MPV 10.2 Neut % (Auto) 83.2 H Lymph % (Auto) 8.4 L [place] % (Auto) 7.5 Eos % (Auto) 0.8 Baso % (Auto) 0.1 Lymph # (Auto) 0.84 L [place] # (Auto) 0.75 Eos # (Auto) 0.08 Baso # (Auto) 0.01 Absolute Neutrophils 8.34 H Sodium 130 L Potassium 3.2 L Chloride 98 Carbon Dioxide 24 Anion Gap 8.0 BUN 18 Creatinine 1.0 GFR Calculation 67 Glucose 112 H Uric Acid 4.3 Calcium 7.9 L Phosphorus 1.5 L Magnesium 2.1 Total Bilirubin 0.5 Direct Bilirubin < 0.2 GGT 9 AST 29 ALT < 5 Alkaline Phosphatase 56 Lactate Dehydrogenase 178 Total Protein 5.7 L Albumin 2.8 L Globulin 2.9 Albumin/Globulin Ratio 1.0 Triglycerides 99 Preliminary micro results at discharge 05/31/21 08:19 Blood Culture - Preliminary Blood 05/31/21 08:25 Blood Culture - Preliminary Blood Discharge Plan Patient/Caregiver Discharge Instructions Activity: as per physical therapy Diet: Consistent Carbohydrate Activity Restrictions/Additional Instructions: Remove montero after 3 days then bladder scan Q6 hours and straight catheterize as needed for post void residual urine volume > 400 mL. If persistent urinary retention, contact SNF provider for further instructions. Prescriptions: New sennosides [Senna Lax] 8.6 mg Tablet 17.2 mg PO QDAY Qty: 30 1RF polyethylene glycol 3350 [HealthyLax] 17 gram Powder In Packet 17 g PO DAILYP PRN (Reason: Constipation) Qty: 30 2RF enoxaparin [Lovenox] 40 mg/0.4 mL syringe 40 mg subcut QDAY 25 Days Qty: 10 0RF Continued amlodipine [Norvasc] 5 mg tablet 5 mg PO QDAY Qty: 90 1RF Rx Instructions: levothyroxine [Synthroid] 125 mcg tablet 125 mcg PO QDAY Qty: 90 1RF cholecalciferol (vitamin D3) 2,000 unit capsule 2,000 unit PO QDAY 0RF aspirin 81 mg tablet,chewable 81 mg PO QDAY 0RF insulin lispro [Humalog KwikPen Insulin] 100 unit/mL insulin pen See Rx Instructions .ROUTE .COMPLEX 0RF Rx Instructions: sliding scale based on accu check and carbs for meal simvastatin [Zocor] 10 mg tablet 10 mg PO HS 0RF tamsulosin [Flomax] 0.4 mg capsule 0.4 mg PO HS 0RF telmisartan-hydrochlorothiazid [Micardis HCT] 80-25 mg Tablet 1 tab PO QDAY 0RF Align 4 mg Capsule 4 mg PO QDAY 0RF Follow Up Plan Follow up with: Tae Espinoza MD [Physician] - Benjamin Srinivasan MD [Primary Care Provider] - Patient Disposition: Xfer SNF Prognosis: Fair Rehab Potential: Fair I certify that the patient requires SNF services: Yes Overall status at discharge: patient is progressing back to baseline Discharge Orders: Discharge Order (Routine); Ordered 06/04/21 Ordered By: Duglas Wood QUALITY VTE Deep Vein Thrombosis/Pulmonary Embolism Present on Admission: No
--- NOTE | 2021-06-17 08:22 | Operative Note ---
DATE OF OPERATION: 06/01/2021 PREOPERATIVE DIAGNOSIS: Right displaced femoral neck fracture. POSTOPERATIVE DIAGNOSIS: Right displaced femoral neck fracture. PROCEDURE PERFORMED: Open treatment of the right displaced femoral neck fracture with prosthetic hemiarthroplasty placing a DePuy ACTIS size 4 standard offset femoral stem; a +0 neck and a 52 unipolar head. SURGEON: Tae Espinoza MD DIRECTOR PATIENT: Demario Nova PA-C. This providers expertise and technical skill were required throughout the case. The PA assisted with preoperative coordination, intraoperative retraction, wound closure, and dressing and splint application, as well as postoperative documentation and care coordination. ANESTHESIA: General endotracheal. DRAINS: None. SPECIMEN: Femoral head, which was discarded ESTIMATED BLOOD LOSS: 100 mL. POSTOPERATIVE CONDITION: Stable. INDICATIONS FOR SURGERY: This is an 86-year-old male who fell and broke his hip, had previously been ambulatory. FINDINGS AT SURGERY: Displaced femoral neck fracture. Post implantation showed satisfactory stability. PROCEDURE IN DETAIL: The patient had been seen preoperatively. Informed consent had been obtained after discussion of risks and benefits of surgery. Risks including, but not limited to, bleeding; infection; injury to nerves, blood vessels, other surrounding structures, anesthetic risks dislocation; fracture; DVT, pulmonary embolus, risks; and the possibility of needing further revision surgery. He understood these risks and wished to proceed. Correct operative site was marked in the preoperative holding, then the patient was taken to the operating room. General anesthesia induced. He was carefully positioned in the left lateral decubitus position and pressure points were carefully padded. Right hip and lower extremity were then carefully prepped and draped in normal sterile fashion. A timeout was performed verifying patient name, operative site, and plan. Ioban was used to cover all skin surfaces. A standard posterolateral approach was made with a scalpel through skin and subcutaneous tissue. Hemostasis obtained with Bovie cautery. We continued blunt dissection down onto the IT band and this was incised in line with the skin incision. A Charnley retractor was placed underneath. We used a lap sponge to sweep fat off of the short external rotators and then these were transected with Bovie just off of the trochanter. I then made a T-shaped capsular incision along the base of the neck. Hemarthrosis was aspirated. We then T'd this up along the head to the acetabular rim. A saw was used to make a freshening neck cut and then a corkscrew was placed in the femoral head and this was removed. It fit through a 53, did not fit through a 52, so we trialed a 52 head and acetabulum and it appeared appropriately sized. We then exposed the proximal femur and a box osteotome was used to gain canal entry and then we used a lateralizing rasp and then began broaching with the ACTIS system up to a size 4. We trialed with a 0 neck and a 52 unipolar head. The hip was reduced. There was satisfactory tension. We felt through the drapes and the knees and feet were at approximately the same level. We took the hip through range of motion. It was stable, so we went ahead and redislocated. Trial implants were removed. Definitive implants were opened. We irrigated IrriSept, copiously down the canal. After waiting a minute, we pulse lavaged copiously with saline, and then the stem was impacted until it seated on the collar. We then placed the head, neck construct onto the stem and impacted with several blows of the mallet. We then reduced the hip, again double checked our stability and leg lengths, which were the same as with trials. We then placed the leg on a padded Varma stand, irrigated with IrriSept again, after a minute, pulse lavaged with saline. A #5 FiberWire was used, two [id number] to repair the capsule; #1 Vicryl running stitches were used to close the IT band in 2 running stitches. Final IrriSept irrigation was done, after a minute final pulse lavage, and then 2-0 Monocryl was used for subcutaneous, blake for skin. Xeroform and sterile dressing were applied. The leg was placed in the abductor wedge and the patient was turned supine, awakened, extubated, and transferred to recovery in stable condition. [id number]:ama Job ID: [id number] Doc ID: [id number] Tae Espinoza MD
== END 2021-06-04 12:17 | DRG 522 ==
LOC: ED 06:30 → MEDSUR 10:24
PROVIDERS: ADMIT Internal Medicine; ATTEND Internal Medicine

== ENCOUNTER 2022-02-16 15:43 | Inpatient (IN) ==
[2022-02-16 16:18] LABS: POC Calcium, Ionized 1.06 (1.16-1.32); POC Creatinine 1.8 (0.6-1.2); POC Potassium 4.7 (3.3-5.1)
[2022-02-16] MEDS ORDERED: CEFEPIME 2 GM VIAL IV ONE (16:29)
[2022-02-16] MEDS ORDERED: LACTATED RINGERS 1,000 ML IV ONE (16:30)
[2022-02-16 17:05] LABS: Basophils # (Auto) 0.01 K/mcL (0.00-0.30); Basophils % (Auto) 0.1 % (0.0-2.0); Eosinophils # (Auto) 0.01 K/mcL (0.00-0.70); Eosinophils % (Auto) 0.1 % (0.0-7.0); Hematocrit 29.2 % (40.1-51.0); Hemoglobin 9.5 g/dL (13.7-17.5); Lymphocytes # (Auto) 0.37 K/mcL (1.50-4.80); Lymphocytes % (Auto) 2.3 % (15.5-49.0); Mean Cell Volume 103.5 fL (80.0-100.0); Mean Corpuscular HGB Conc 32.5 g/dL (31.0-36.0); Mean Platelet Volume 9.8 fL (8.8-12.5); Monocytes # (Auto) 0.97 K/mcL (0.10-0.90); Monocytes % (Auto) 6.2 % (1.0-12.0); Neutrophils % (Auto) 89.9 % (38.0-78.0); Platelet Count 240 K/mcL (140-440); RBC 2.82 M/mcL (4.63-6.08); Red Cell Distribution Width 13.8 % (11.5-14.5); WBC 15.8 K/mcL (4.5-11.0)
--- NOTE | 2022-02-16 18:30 | Emergency Department Note ---
HPI General Chief complaint: Recheck/Abnormal Lab/Rx Stated complaint: dr sent him Time Seen by Provider: 02/16/22 15:55 Source: patient Mode of arrival: wheelchair History of Present Illness HPI Narrative: Narrative: Mr. Uribe is a 86-year-old male who was called back to the ER for bacteremia. Patient was seen here 2 days ago by myself, at that time his complaint was he had an episode of rigors. Extensive infectious work-up showed a UTI. Patient was stable and feeling well and wanting to go home was discharged on Levaquin. Received a call from the lab today that his blood cultures drawn at that visit did pop positive for a E. coli and gram-negative bacteria. So I did have nursing staff call the patient back to the ER for r eevaluation. Here in the ER today patient denies any new complaints or symptoms no fever no chills no cardiorespiratory complaints no abdominal pains flank pains or nausea vomitings. Still no significant dysuria or other. Says he has been taking the Levaquin. Still endorses similar fatigue, hoping to go home he says. No other complaint Related Data Home Medications Medication Instructions Recorded Confirmed cholecalciferol (vitamin D3) 50 2,000 unit PO QDAY 09/12/14 02/16/22 mcg (2,000 unit) capsule sodium chloride 1 gram tablet 1,000 mg PO .qod 09/23/21 02/16/22 insulin glargine 100 unit/mL 7 unit subcut BID 02/16/22 02/16/22 subcutaneous solution losartan 100 mg tablet 50 mg PO QDAY 02/16/22 02/16/22 Previous Rx's Medication Instructions Recorded omeprazole 20 mg capsule,delayed 20 mg PO QDAY #90 caps 09/02/21 release cholestyramine-aspartame 4 gram 4 g PO QDAY #210 grams 10/23/21 oral powder (Cholestyramine Light) amlodipine 5 mg tablet (Norvasc) 5 mg PO QDAY #90 tabs 12/11/21 simvastatin 10 mg tablet 10 mg PO QDAY #90 tabs 01/01/22 celecoxib 200 mg capsule (Celebrex) 200 mg PO BID PRN pain #30 caps 01/07/22 tamsulosin 0.4 mg capsule (Flomax) 0.4 mg PO QDAY #90 caps 01/07/22 levothyroxine 150 mcg tablet 150 mcg PO QDAY 90 days #90 tabs 01/19/22 levofloxacin 750 mg tablet 750 mg PO Q24H 4 days #4 tabs 02/14/22 Allergies Allergy/AdvReac Type Severity Reaction Status Date / Time bee venom protein (honey bee) Allergy Severe Anaphylaxis Verified 02/16/22 15:50 Sulfa (Sulfonamide Allergy Mild Hives Verified 02/16/22 15:50 Antibiotics) Review of Systems ROS ROS Narrative: Narrative: All systems ED: reviewed and negative except as stated. PFS Narrative Patient History Narrative: Narrative: Medical/Surgical/Family History All Active Problems UTI (urinary tract infection) (Acute) Chills (Acute) Acute dehydration (Acute) UTI (urinary tract infection) (Acute) Bacteremia (Acute) Anemia (Acute) Osteoarthritis (Acute) Diarrhea (Acute) BPH (benign prostatic hyperplasia) (Acute) Black stools (Acute) Depression (Acute) Syncope (Acute) Head injury (Acute) Closed displaced fracture of right femoral neck (Acute) Anemia, macrocytic (Acute) Acute hypokalemia (Acute) Acute hyponatremia (Acute) Febrile (Acute) Diabetes (Acute) Right otitis externa (Acute) Right acute otitis media (Acute) Bilateral knee pain (Acute) Right knee DJD (Acute) Dysphagia (Acute) Prostate cancer (Acute) Annual physical exam (Acute) Medicare annual wellness visit, initial (Acute) IBS (irritable bowel syndrome) (Chronic) History of inguinal hernia repair (Acute) Vitamin D deficiency (Acute) Ptosis of eyelid (Acute) Pseudophakia (Acute) Malignant neoplasm prostate (Acute) Open-angle glaucoma (Acute) longterm current use of insulin (Acute) Hypothyroidism (acquired) (Acute) Hypertension, essential (Acute) Hyperlipidemia (Acute) Hypercholesterolemia (Acute) Glaucoma (Acute) Epiphora (Acute) 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) Chronic kidney disease, stage III (moderate) (Acute) Medical History Annual physical exam Bilateral knee pain Black stools BPH (benign prostatic hyperplasia) Chronic kidney disease, stage III (moderate) Depression Diarrhea [place] of optic disc Dysphagia Epiphora Glaucoma Hypercholesterolemia Hyperlipidemia Hypertension, essential Hypothyroidism (acquired) longterm current use of insulin Malignant neoplasm prostate Medicare annual wellness visit, initial Open-angle glaucoma Petechial rash Prostate cancer Pseudophakia Ptosis of eyelid 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 Vital stable no SIRS Head: Normocephalic, atraumatic, Eyes: No Icterus, ENT: Dry mucus membranes, Neck: Supple, Cardiac: Normal heart sounds, palpable radial pulses, Pulmonary: Normal respiratory effort. Breath sounds clear, no wheeze, rhonchi, rales, Gastrointestinal: Abdomen soft, non-distended, non-tender, no CVA tenderness Musculoskeletal: No gross deformities, well perfused Skin: warm, dry Neuro: Alert and oriented. Course Vital Signs Vital signs: Vital Signs Temperature 36.4 C 02/16/22 15:46 Pulse Rate 80 02/16/22 15:46 Respiratory Rate 20 02/16/22 15:46 Blood Pressure 118/59 02/16/22 15:46 Pulse Oximetry (%) 97 02/16/22 15:46 Oxygen Delivery Method 02/16/22 15:46 Temperature 36.4 C 02/16/22 15:46 Pulse Rate 78 02/16/22 18:16 Respiratory Rate 20 02/16/22 15:46 Blood Pressure 152/68 02/16/22 18:16 Pulse Oximetry (%) 92 02/16/22 18:16 Oxygen Delivery Method 02/16/22 15:46 MDM MDM Narrative Medical decision making narrative: Narrative: Patient seen here 2 days ago diagnosed with UTI sent home on Levaquin but blood cultures resulted positive today with E. coli as well as gram-negative bacteria, patient called back Endorses fatigue but no new or other symptoms. Vitals are stable we will repeat some laboratory studies. CT of the abdomen at this time to assess for any obstructive uropathy but he has no abdominal pains or flank pains etc. Was given some IV fluids. Did review cultures they are sensitive to cefepime so I gave him a dose Today's white count is slightly uptrending from 12>15, blood gas again shows a normal lactic acid today 1.6 Electrolytes show a creatinine 1.8 up from 1.4, glucose 230 Reevaluation patient was still really hoping to go home however did have detailed discussion with him and family member, given his age, positive blood cultures, uptrending creatinine and leukocytosis I do think admission with further management and IV antibiotics is most appropriate. He was agreeable to this plan. Spoke with Dr. Rojas who accepts admission Lab Data Result diagrams: 02/16/22 16:10 Labs: Lab Results 02/16/22 02/16/22 02/16/22 Range/Units 16:10 16:14 16:16 WBC 15.8 H (4.5-11.0) K/mcL RBC 2.82 L (4.63-6.08) M/mcL Hgb 9.5 L (13.7-17.5) g/dL Hct 29.2 L (40.1-51.0) % POC Hct 29.0 L (41-55) MCV 103.5 H (80.0-100.0) fL MCH 33.7 (26.0-34.0) pg MCHC 32.5 (31.0-36.0) g/dL RDW 13.8 (11.5-14.5) % Plt Count 240 (140-440) K/mcL MPV 9.8 (8.8-12.5) fL Immature Gran % (Auto) 1.4 H (0.0-0.5) % Neut % (Auto) 89.9 H (38.0-78.0) % Lymph % (Auto) 2.3 L (15.5-49.0) % [place] % (Auto) 6.2 (1.0-12.0) % Eos % (Auto) 0.1 (0.0-7.0) % Baso % (Auto) 0.1 (0.0-2.0) % Lymph # (Auto) 0.37 L (1.50-4.80) K/mcL [place] # (Auto) 0.97 H (0.10-0.90) K/mcL Eos # (Auto) 0.01 (0.00-0.70) K/mcL Baso # (Auto) 0.01 (0.00-0.30) K/mcL Immature Gran # 0.22 H (0.00-0.05) K/mcl Absolute Neutrophils 14.17 H (1.80-8.00) K/mcL POC VBG pH 7.45 H (7.32-7.42) POC VBG pCO2 at Temp 31.5 L (41-51) POC VBG pO2 49 H (25-40) POC VBG HCO3 21.8 L (24-28) POC VBG Total CO2 23.0 L (25-29) POC Venous O2 Sat 87.0 H (40-70) POC VBG Base Excess -2.0 (-2-2) VBG Lactic Acid 1.6 (0.5-2) POC Sodium 131 L (133-145) POC Potassium 4.7 (3.3-5.1) POC Chloride 101 (96-108) POC Total CO2 21.0 L (22-30) POC BUN 33 H (6-20) POC Creatinine 1.8 H (0.6-1.2) POC Glucose 231 H (70-105) POC WB Ioniz Calcium 1.06 L (1.16-1.32) Discharge Plan Patient/Caregiver Discharge Instructions Pt seen by DREDGE MATE/PA only: No Clinical Impression: UTI (urinary tract infection), Bacteremia Patient Disposition: Xfer As Inpt ([facility]) Condition: Fair Follow up with: Benjamin Srinivasan MD [Primary Care Provider] - Prescriptions: No Action omeprazole 20 mg capsule,delayed release(DR/EC) 20 mg PO QDAY Qty: 90 1RF amlodipine [Norvasc] 5 mg tablet 5 mg PO QDAY Qty: 90 1RF Rx Instructions: simvastatin 10 mg tablet 10 mg PO QDAY Qty: 90 1RF tamsulosin [Flomax] 0.4 mg capsule 0.4 mg PO QDAY Qty: 90 0RF celecoxib [Celebrex] 200 mg capsule 200 mg PO BID PRN (Reason: pain) Qty: 30 1RF levothyroxine 150 mcg tablet 150 mcg PO QDAY 90 Days Qty: 90 1RF cholecalciferol (vitamin D3) 2,000 unit capsule 2,000 unit PO QDAY insulin lispro [Humalog KwikPen Insulin] 100 unit/mL insulin pen See Rx Instructions .ROUTE .COMPLEX 0RF Rx Instructions: sliding scale based on accu check and carbs for meal sodium chloride 1 gram tablet 1,000 mg PO .qod Cholestyramine Light 4 gram powder 4 g PO QDAY Qty: 210 0RF Rx Instructions: administer w/meal; avoid other meds within 1hr before or 4-6hr after dose levofloxacin 750 mg tablet 750 mg PO Q24H 4 Days Qty: 4 0RF losartan 100 mg tablet 50 mg PO QDAY insulin glargine 100 unit/mL Solution 7 unit SUBCUT BID
--- NOTE | 2022-02-16 18:41 | Internal Med History&Physical ---
HPI History of Present Illness Patient information: Note initiated : 02/16/22 at 6:39 pm Service Date, if different from initiated Date: [] Patient: Mandi Bahena a 86 y/o M admitted on for dr aron nguyen. Chief Complaint: [] History of present illness: Mr. Bahena is a 86 year old M with a history of IBS/microscopic colitis,hypothyroidism/With a HTN, diabetes/CKD stage II/BPH/DJD. Patient presented to the ER on 02/14 due to weakness/shaking chills and a fever of 102. He was diagnosed with UTI and discharged on Levaquin. Patient has been recovering well involution of chills and rigors at home. His blood cultures returned positive for gram-negative rods/E. coli and subsequently patient was requested to revisit ER today for evaluation. Initial work-up was consistent with early sepsis with worsening renal function/white count 15.8. Patient was continued on antibiotics, in light of bacteremia CT abdomen was ordered, result pending. Hospitalist service was consulted for admission for management of bacteremia/complicated UTI and sepsis At the time of my evaluation patient is accompanied with his daughter. He is in good spirits. Denies fever, shaking chills, abdominal pain, nausea, vomiting, dysuria, hematuria but endorses to frequent urination/incomplete emptying of bladder. He denies diarrhea, new joint pain other than existing DJD. Review of systems Comprehensive review system negative except as above PFSH PFSH All Active Problems UTI (urinary tract infection) (Acute) Chills (Acute) Acute dehydration (Acute) UTI (urinary tract infection) (Acute) Bacteremia (Acute) Anemia (Acute) Osteoarthritis (Acute) Diarrhea (Acute) BPH (benign prostatic hyperplasia) (Acute) Black stools (Acute) Depression (Acute) Syncope (Acute) Head injury (Acute) Closed displaced fracture of right femoral neck (Acute) Anemia, macrocytic (Acute) Acute hypokalemia (Acute) Acute hyponatremia (Acute) Febrile (Acute) Diabetes (Acute) Right otitis externa (Acute) Right acute otitis media (Acute) Bilateral knee pain (Acute) Right knee DJD (Acute) Dysphagia (Acute) Prostate cancer (Acute) Annual physical exam (Acute) Medicare annual wellness visit, initial (Acute) IBS (irritable bowel syndrome) (Chronic) History of inguinal hernia repair (Acute) Vitamin D deficiency (Acute) Ptosis of eyelid (Acute) Pseudophakia (Acute) Malignant neoplasm prostate (Acute) 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) Hypothyroidism (acquired) (Acute) Hypertension, essential (Acute) Hyperlipidemia (Acute) Hypercholesterolemia (Acute) Glaucoma (Acute) Epiphora (Acute) 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) Chronic kidney disease, stage III (moderate) (Acute) Medical History Annual physical exam Bilateral knee pain Black stools BPH (benign prostatic hyperplasia) Chronic kidney disease, stage III (moderate) Depression Diarrhea [place] of optic disc Dysphagia Epiphora Glaucoma Hypercholesterolemia Hyperlipidemia Hypertension, essential Hypothyroidism (acquired) [facility] current use of insulin Malignant neoplasm prostate Medicare annual wellness visit, initial Open-angle glaucoma Petechial rash Prostate cancer Pseudophakia Ptosis of eyelid 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 Vitamin D deficiency Surgical History History of colonoscopy (05/08/03) History of inguinal hernia repair Family History Mother Diabetes mellitus NOS Essential hypertension Social History marital status: occupational status: retired physical activity: aerobics frequency: daily alcohol intake frequency: does not drink substance use type: does not use MEDS/ALLERGIES Home Medications and Allergies Home Medications Medication Instructions Recorded Confirmed Type cholecalciferol (vitamin D3) 50 2,000 unit PO QDAY 09/12/14 02/16/22 History mcg (2,000 unit) capsule omeprazole 20 mg capsule,delayed 20 mg PO QDAY #90 caps 09/02/21 02/16/22 Rx release sodium chloride 1 gram tablet 1,000 mg PO .qod 09/23/21 02/16/22 History cholestyramine-aspartame 4 gram 4 g PO QDAY #210 grams 10/23/21 02/16/22 Rx oral powder (Cholestyramine Light) amlodipine 5 mg tablet (Norvasc) 5 mg PO QDAY #90 tabs 12/11/21 02/16/22 Rx simvastatin 10 mg tablet 10 mg PO QDAY #90 tabs 01/01/22 02/16/22 Rx celecoxib 200 mg capsule (Celebrex) 200 mg PO BID PRN pain #30 caps 01/07/22 02/16/22 Rx tamsulosin 0.4 mg capsule (Flomax) 0.4 mg PO QDAY #90 caps 01/07/22 02/16/22 Rx levothyroxine 150 mcg tablet 150 mcg PO QDAY 90 days #90 tabs 01/19/22 02/16/22 Rx levofloxacin 750 mg tablet 750 mg PO Q24H 4 days #4 tabs 02/14/22 02/16/22 Rx insulin glargine 100 unit/mL 7 unit subcut BID 02/16/22 02/16/22 History subcutaneous solution losartan 100 mg tablet 50 mg PO QDAY 02/16/22 02/16/22 History Allergies Allergy/AdvReac Type Severity Reaction Status Date / Time bee venom protein (honey bee) Allergy Severe Anaphylaxis Verified 02/16/22 15:50 Sulfa (Sulfonamide Allergy Mild Hives Verified 02/16/22 15:50 Antibiotics) EXAM Constitutional Vitals: Temp Pulse Resp BP Pulse Ox O2 Del Method 97.6 F 78 20 152/68 92 02/16/22 15:46 02/16/22 18:16 02/16/22 15:46 02/16/22 18:16 02/16/22 18:16 02/16/22 15:46 Alert oriented and in good spirits Head normocephalic Oral cavity moist No ear or nose discharge Eye no subconjunctival pallor, movement symmetrical S1-S2 occasionally irregular Nonlabored breathing Nondistended nontender abdomen, no flank pain on bimanual palpation Lower extremity no cyanosis clubbing or joint swelling Skin no suspicious lesion Psych anxious but no hallucination Neuro normal higher function on limited neuro exam DATA Data Completed and Pending Labs: Labs from last 24 hours 02/16/22 02/16/22 02/16/22 16:16 16:14 16:10 WBC 15.8 H RBC 2.82 L Hgb 9.5 L Hct 29.2 L POC Hct 29.0 L MCV 103.5 H MCH 33.7 MCHC 32.5 RDW 13.8 Plt Count 240 MPV 9.8 Immature Gran % (Auto) 1.4 H Neut % (Auto) 89.9 H Lymph % (Auto) 2.3 L [place] % (Auto) 6.2 Eos % (Auto) 0.1 Baso % (Auto) 0.1 Lymph # (Auto) 0.37 L [place] # (Auto) 0.97 H Eos # (Auto) 0.01 Baso # (Auto) 0.01 Immature Gran # 0.22 H Absolute Neutrophils 14.17 H POC VBG pH 7.45 H POC VBG pCO2 at Temp 31.5 L POC VBG pO2 49 H POC VBG HCO3 21.8 L POC VBG Total CO2 23.0 L POC Venous O2 Sat 87.0 H POC VBG Base Excess -2.0 VBG Lactic Acid 1.6 POC Sodium 131 L POC Potassium 4.7 POC Chloride 101 POC Total CO2 21.0 L POC BUN 33 H POC Creatinine 1.8 H POC Glucose 231 H POC WB Ioniz Calcium 1.06 L A/P Narrative A/P Narrative: [id number] with a history of DM type II/HTN/CKD/DJD and microcolitis who presents to the ER with complicated UTI/bacteremia and worsening GIOVANNI * Complicated UTI with bacteremia and early sepsis, no evidence of obstructive uropathy on CT abdomen. Start Rocephin for pansensitive E. coli on Rocephin * Pansensitive E. coli bacteremia secondary to complicated UTI. Antibiotic coverage, surveillance cultures * Acute on chronic kidney disease, baseline creatinine 1.4, current creatinine 1.8 secondary to sepsis endorgan dysfunction, continue crystalloids, avoid nephrotoxins including NSAIDs/ARB * DM type II continue basal prandial insulin/CC diet * Hypothyroidism continue thyroxine * GERD continue PPI * BPH on tamsulosin * Prophylaxis Lovenox Plan * Inpatient admission * Surveillance cultures, antibiotic coverage * Pre-existing medical condition management as above except for antihypertensiv es to be held * PT OT nutrition support Time Spent With Patient Time: Total time spent is greater than 50% in coordination of care (as documented) at patient's floor/unit and/or counseling patient: Total time spent with greater than 50% in coordination of care (as documented) at patient's floor/unit and/or counseling patient:: 50 - 70 minutes
--- NOTE | 2022-02-16 19:09 | Cat Scan Report ---
History: Urinary tract infection with bacteremia, prostate cancer, diabetic TECHNIQUE: Patient was imaged without contrast in axial plane at 2.5 mm intervals from above the diaphragm through the symphysis pubis. Sagittal and coronal reformats were created. The radiation exposure was limited using dose reduction technology. There are small peripheral infiltrates in the posterior basal segments of both lower lobes with small air bronchograms. These are new finding since prior CT done on 08/11/21. There is underlying mild linear scarring in both lower lobes with which was seen on the prior exam. Evaluation the abdominal organs without contrast is somewhat limited. The liver and spleen are normal in size and homogeneous. The gallbladder appears normal with no calcified stones or thickening of the wall. There is atrophy of the pancreas and no evidence of pancreatitis. The adrenals are normal. No kidney stone or hydronephrosis is present and there is no perinephric stranding. There are few small complex cysts in the left kidney which have relatively high attenuation material within them. A 6 x 7 mm cyst is present in the upper pole and there is a 6 x 7 mm similar-appearing high attenuation cyst laterally in the middle third. The ureters are decompressed. Patient has a right hip prosthesis which partially obscures the urinary bladder. No stone is seen within the bladder and the lateral wall does not appear thickened. There are numerous radiation implant seeds in the prostate. Prostate is small following radiation therapy. No mass or adenopathy are seen within the abdomen or pelvis. There is no abscess or ascites. Multiple noninflamed diverticula are present in the descending and sigmoid colon. Small intestine is normal. Large amount calcified plaque is present along the wall of the abdominal aorta. There is severe degenerative disc disease at multiple levels in the lumbar spine. There is an old mild wedge compression fracture T12. No lytic or blastic bone metastasis are present. IMPRESSION: Few small complex cysts in the left kidney which may contain proteinaceous debris or blood. They have not enlarged since the prior CT done on 08/11/21. No evidence of kidney stone or urinary tract infection. Small infiltrates in both lung bases which may be pneumonia or atelectasis No evidence of prostate metastasis Dr. Garcia was called with the report Interpreted and Authenticated by: Adolph Andrews 02/16/22
[2022-02-16] MEDS ORDERED: BISACODYL 10 MG SUPP.RECT PR PRN (19:48)
[2022-02-16] MEDS ORDERED: DEXTROSE 31 GM ORAL.SUSP PO PRN (19:48)
[2022-02-16] MEDS ORDERED: MAGNESIUM SULFATE 2 GM/50 ML BAG IV PRN (19:48)
[2022-02-16] MEDS ORDERED: ACETAMINOPHEN 650 MG/65 ML BAG IV PRN (19:48)
[2022-02-16] MEDS ORDERED: DEXTROSE 50% 50 ML VIAL IV PRN (19:48)
[2022-02-16] MEDS ORDERED: ONDANSETRON 4 MG/2 ML VIAL IV PRN (19:48)
[2022-02-16] MEDS ORDERED: ONDANSETRON 4 MG ODT TABLET SL PRN (19:48)
[2022-02-16] MEDS ORDERED: MELATONIN 3 MG TABLET PO PRN (19:48)
[2022-02-16] MEDS ORDERED: POLYETHYLENE GLYCOL 3350 17 GM PACKET PO PRN (19:48)
[2022-02-16] MEDS ORDERED: POTASSIUM CHLORIDE 40 MEQ in DEXTROSE 5% IN WATER 500 ML IV PRN (19:48)
[2022-02-16] MEDS ORDERED: 0.9 % SODIUM CHLORIDE 1,000 ML IV SCH (19:48)
[2022-02-16] MEDS ORDERED: ACETAMINOPHEN 325 MG TABLET PO PRN (19:48)
[2022-02-16] MEDS: INSULIN LISPRO 1 UNIT/0.01 ML UNIT SQ SCH (20:39)
[2022-02-16] MEDS ORDERED: SENNOSIDES/DOCUSATE SODIUM 1 TAB TABLET PO SCH (21:00)
[2022-02-16] MEDS: INSULIN GLARGINE, HUMAN 1 UNIT/0.01 ML SQ SCH (21:03)
[2022-02-16] MEDS: 0.9 % SODIUM CHLORIDE 10 ML SYRINGE IV SCH (21:04)
[2022-02-16] MEDS: DOCUSATE SODIUM 100 MG CAPSULE PO SCH (21:04)
[2022-02-16] MEDS: cefTRIAXone 2 GM in DEXTROSE 5% IN WATER 50 ML IV SCH (21:13)
[2022-02-16] MEDS ORDERED: cefTRIAXone 2 GM VIAL ONE (21:20)
[2022-02-17] MEDS: 0.9 % SODIUM CHLORIDE 10 ML SYRINGE IV SCH (05:17)
[2022-02-17 06:58] LABS: Basophils # (Auto) 0.01 K/mcL (0.00-0.30); Basophils % (Auto) 0.1 % (0.0-2.0); Eosinophils # (Auto) 0.07 K/mcL (0.00-0.70); Eosinophils % (Auto) 0.7 % (0.0-7.0); Hematocrit 28.7 % (40.1-51.0); Hemoglobin 9.4 g/dL (13.7-17.5); Lymphocytes # (Auto) 0.64 K/mcL (1.50-4.80); Lymphocytes % (Auto) 6.1 % (15.5-49.0); Mean Cell Volume 104.4 fL (80.0-100.0); Mean Corpuscular HGB Conc 32.8 g/dL (31.0-36.0); Mean Platelet Volume 9.9 fL (8.8-12.5); Monocytes # (Auto) 0.86 K/mcL (0.10-0.90); Monocytes % (Auto) 8.2 % (1.0-12.0); Neutrophils % (Auto) 83.2 % (38.0-78.0); Platelet Count 231 K/mcL (140-440); RBC 2.75 M/mcL (4.63-6.08); WBC 10.5 K/mcL (4.5-11.0)
[2022-02-17] MEDS ORDERED: CHOLESTYRAMINE/ASPARTAME 4 GM POWD.PACK PO SCH (07:00)
[2022-02-17 07:13] LABS: ALT/SGPT 7 U/L (<40); AST/SGOT 18 U/L (<40); Albumin 2.5 gm/dL (3.2-5.2); Albumin/Globulin Ratio 0.8 (1.0-2.3); Alkaline Phosphatase 105 U/L (39-117); Bilirubin,Direct < 0.2 mg/dL (0-0.3); Bilirubin,Total 0.3 mg/dL (0.1-1.0); Blood Urea Nitrogen 25 mg/dL (8-23); Calcium 8.3 mg/dL (8.6-10.4); Carbon Dioxide 23 mmol/L (22-30); Chloride 101 mmol/L (96-108); Globulin 3.1 gm/dL (2.2-3.7); Glomerular Filtration Rate 41; Glucose 140 mg/dL (70-105); Lactate Dehydrogenase 177 U/L (135-225); Phosphorous 2.4 mg/dL (2.5-4.5); Triglycerides 152 mg/dL (<150)
[2022-02-17] MEDS: INSULIN LISPRO 1 UNIT/0.01 ML UNIT SQ SCH ×2 (07:41→12:02)
--- NOTE | 2022-02-17 08:21 | Discharge Summary ---
Discharge Provider Provider IMPORTANT FOLLOW-UP INFORMATION FOR PCP: Patient information: Note initiated : 02/17/22 at 8:17 am Service Date, if different from initiated Date: [] Patient: Mandi Bahena a 86 y/o M admitted on 02/16/[address] aron nguyen. Chief Complaint: [] Date of admission: 02/16/22 19:36 Discharge date: 02/17/22 Primary care physician: Benjamin Srinivasan MD Consults: 02/16/22 17:04 Consult to Physician [CONS] Stat Comment: Consulting Provider: Low Rojas Reason For Exam: Physician to Consult COURSE Hospital Course Hospital course: Discharge diagnosis * Complicated E. coli UTI with E. coli bacteremia and early sepsis, clinical resolution noted, normalization of creatinine to baseline, white count 10, afebrile and asymptomatic. Patient requesting discharge. Continue additional 5 days oral Levaquin. No evidence of obstructive uropathy on CT abdomen. * Pansensitive E. coli bacteremia secondary to complicated UTI. * Acute on chronic kidney disease, baseline creatinine 1.4, now at baseline * DM type II managed on basal prandial insulin/CC diet * Hypothyroidism managed on home dose thyroxine * GERD continue PPI * BPH on tamsulosin Brief hospital course Mr. Bahena is a 86 year old M with a history of IBS/microscopic colitis,hypothyroidism/With a HTN, diabetes/CKD stage II/BPH/DJD. Patient presented to the ER on 02/14 due to weakness/shaking chills and a fever of 102. He was diagnosed with UTI and discharged on Levaquin. Patient has been recovering well involution of chills and rigors at home. His blood cultures returned positive for gram-negative rods/E. coli and subsequently patient was requested to revisit ER today for evaluation. Initial work-up was consistent with early sepsis with worsening renal function/white count 15.8. Patient was continued on antibiotics, in light of bacteremia CT abdomen was ordered, result pending. Hospitalist service was consulted for admission for management of bacteremia/complicated UTI and sepsis 02/17-Mr. Navarro demonstrated remarkable recovery within the 24 hours. Of hospitalization/status cultures negative, afebrile, white count down to 10, creatinine down to 1.5, he feels at baseline and requesting discharge. Continue additional 5 days oral Levaquin. No flank pain dysuria. No nausea vomiting. Discharge diagnosis: . Time Spent with Patient Time attestation: Total time spent providing and/or coordinating discharge services: Time spent: Greater than 30 minutes EXAM Constitutional Vitals: Temp Pulse Resp BP Pulse Ox O2 Del Method O2 Flow Rate 98.1 F 65 16 134/62 95 2 02/17/22 02:20 02/17/22 06:01 02/17/22 06:01 02/17/22 06:01 02/17/22 06:01 02/17/22 06:01 02/17/22 03:53 Alert oriented Nonlabored breathing Minimally anxious and wants to go home Nondistended nontender abdomen. Discharge Data Data Completed and Pending Labs on day of discharge: Labs from last 24 hours 02/17/22 02/17/22 02/16/22 05:05 05:05 16:16 WBC 10.5 RBC 2.75 L Hgb 9.4 L Hct 28.7 L POC Hct 29.0 L MCV 104.4 H MCH 34.2 H MCHC 32.8 RDW 14.0 Plt Count 231 MPV 9.9 Immature Gran % (Auto) 1.7 H Neut % (Auto) 83.2 H Lymph % (Auto) 6.1 L [place] % (Auto) 8.2 Eos % (Auto) 0.7 Baso % (Auto) 0.1 Lymph # (Auto) 0.64 L [place] # (Auto) 0.86 Eos # (Auto) 0.07 Baso # (Auto) 0.01 Immature Gran # 0.18 H Absolute Neutrophils 8.75 H POC VBG pH POC VBG pCO2 at Temp POC VBG pO2 POC VBG HCO3 POC VBG Total CO2 POC Venous O2 Sat POC VBG Base Excess VBG Lactic Acid POC Sodium 131 L Sodium 134 POC Potassium 4.7 Potassium 4.2 POC Chloride 101 Chloride 101 Carbon Dioxide 23 POC Total CO2 21.0 L Anion Gap 10.0 POC BUN 33 H BUN 25 H Creatinine 1.5 H POC Creatinine 1.8 H GFR Calculation 41 Glucose 140 H POC Glucose 231 H Uric Acid 5.0 Calcium 8.3 L POC WB Ioniz Calcium 1.06 L Phosphorus 2.4 L Magnesium 1.9 Total Bilirubin 0.3 Direct Bilirubin < 0.2 GGT 16 AST 18 ALT 7 Alkaline Phosphatase 105 Lactate Dehydrogenase 177 Total Protein 5.6 L Albumin 2.5 L Globulin 3.1 Albumin/Globulin Ratio 0.8 L Triglycerides 152 H 02/16/22 02/16/22 16:14 16:10 WBC 15.8 H RBC 2.82 L Hgb 9.5 L Hct 29.2 L POC Hct MCV 103.5 H MCH 33.7 MCHC 32.5 RDW 13.8 Plt Count 240 MPV 9.8 Immature Gran % (Auto) 1.4 H Neut % (Auto) 89.9 H Lymph % (Auto) 2.3 L [place] % (Auto) 6.2 Eos % (Auto) 0.1 Baso % (Auto) 0.1 Lymph # (Auto) 0.37 L [place] # (Auto) 0.97 H Eos # (Auto) 0.01 Baso # (Auto) 0.01 Immature Gran # 0.22 H Absolute Neutrophils 14.17 H POC VBG pH 7.45 H POC VBG pCO2 at Temp 31.5 L POC VBG pO2 49 H POC VBG HCO3 21.8 L POC VBG Total CO2 23.0 L POC Venous O2 Sat 87.0 H POC VBG Base Excess -2.0 VBG Lactic Acid 1.6 POC Sodium Sodium POC Potassium Potassium POC Chloride Chloride Carbon Dioxide POC Total CO2 Anion Gap POC BUN BUN Creatinine POC Creatinine GFR Calculation Glucose POC Glucose Uric Acid Calcium POC WB Ioniz Calcium Phosphorus Magnesium Total Bilirubin Direct Bilirubin GGT AST ALT Alkaline Phosphatase Lactate Dehydrogenase Total Protein Albumin Globulin Albumin/Globulin Ratio Triglycerides Discharge Plan Patient/Caregiver Discharge Instructions Activity: increase activity as tolerated Diet: Consistent Carbohydrate Instructions: Urinary Tract Infection in Men (GEN) Prescriptions: Continued omeprazole 20 mg capsule,delayed release(DR/EC) 20 mg PO QDAY Qty: 90 1RF amlodipine [Norvasc] 5 mg tablet 5 mg PO QDAY Qty: 90 1RF Rx Instructions: simvastatin 10 mg tablet 10 mg PO QDAY Qty: 90 1RF tamsulosin [Flomax] 0.4 mg capsule 0.4 mg PO QDAY Qty: 90 0RF celecoxib [Celebrex] 200 mg capsule 200 mg PO BID PRN (Reason: pain) Qty: 30 1RF levothyroxine 150 mcg tablet 150 mcg PO QDAY 90 Days Qty: 90 1RF cholecalciferol (vitamin D3) 2,000 unit capsule 2,000 unit PO QDAY insulin lispro [Humalog KwikPen Insulin] 100 unit/mL insulin pen See Rx Instructions .ROUTE .COMPLEX 0RF Rx Instructions: sliding scale based on accu check and carbs for meal sodium chloride 1 gram tablet 1,000 mg PO .qod Cholestyramine Light 4 gram powder 4 g PO QDAY Qty: 210 0RF Rx Instructions: administer w/meal; avoid other meds within 1hr before or 4-6hr after dose levofloxacin 750 mg tablet 750 mg PO Q24H 4 Days Qty: 4 0RF losartan 100 mg tablet 50 mg PO QDAY insulin glargine 100 unit/mL Solution 7 unit SUBCUT BID Follow Up Plan Follow up with: Benjamin Srinivasan MD [Primary Care Provider] - Patient Disposition: Home, Self-Care Prognosis: Fair Rehab Potential: Good I certify that the patient requires SNF services: No Overall status at discharge: patient is progressing back to baseline Discharge Orders: Discharge Order (Routine); Ordered 02/17/22 Ordered By: Low HERNANDEZ VTE Deep Vein Thrombosis/Pulmonary Embolism Present on Admission: No
[2022-02-17] MEDS ORDERED: SODIUM CHLORIDE 1 GM TABLET PO SCH (09:00)
[2022-02-17] MEDS ORDERED: MULTIVIT,THER IRON,CA,FA & MIN 1 TABLET PO SCH (09:00)
[2022-02-17] MEDS ORDERED: OMEPRAZOLE 20 MG CAPSULE PO SCH (09:00)
[2022-02-17] MEDS ORDERED: LEVOTHYROXINE 150 MCG TABLET PO SCH (09:00)
[2022-02-17] MEDS ORDERED: ENOXAPARIN 40 MG/0.4 ML SYRINGE SQ SCH (09:00)
[2022-02-17] MEDS ORDERED: amLODIPine 5 MG TABLET PO SCH (09:00)
[2022-02-17] MEDS ORDERED: VITAMIN D3 25 MCG TABLET PO SCH (09:00)
[2022-02-17] MEDS ORDERED: TAMSULOSIN 0.4 MG CAPSULE PO SCH (09:00)
[2022-02-17] MEDS ORDERED: SIMVASTATIN 10 MG TABLET PO SCH (09:00)
[2022-02-17] MEDS: DOCUSATE SODIUM 100 MG CAPSULE PO SCH (09:07)
[2022-02-17] MEDS: INSULIN GLARGINE, HUMAN 1 UNIT/0.01 ML SQ SCH (09:22)
[2022-02-17] MEDS: cefTRIAXone 2 GM in DEXTROSE 5% IN WATER 50 ML IV SCH (09:58)
== END 2022-02-17 12:15 | disposition home or self-care (01) | DRG 872 ==
LOC: ED 15:43 → ICU 19:36
PROVIDERS: ADMIT Internal Medicine; ATTEND Internal Medicine